=== PATIENT | male | born 1950 | race Caucasian/White ===

== ENCOUNTER → 2016-12-13 | Outpatient (CLI) | payer OTHER ==
[~2016-12-13] MED LIST: ASPI81TA28 PO; CHOL100027 PO; LSN20 PO; NIFE60TA55 PO; OMEG7.5C; PLV75 PO; POTA10TA PO; SIMV-151 PO; SITA50TA5 PO
--- NOTE | 2016-12-13 11:37 | DIAGNOSTIC IMAGING REPORT ---
LEFT ELBOW MIN 3 VIEWS ROUTINE CLINICAL HISTORY: Left elbow pain status post trauma. COMPARISON: None. DISCUSSION: The fat pads are not displaced. No acute fractures are visualized. There is a small olecranon spur. There is mild spurring at the level of both the medial and lateral distal humeral epicondyles. There is a small corticated ossicle adjacent the lateral condyle. There is posterior soft tissue swelling. There is no evidence for soft tissue swelling. IMPRESSION: 1. Posterior soft tissue swelling, possibly representing a hematoma. 2. Degenerative changes. 3. No acute fractures visualized Electronically signed by: Jose De Jesus Puente M.D. 12/13/2016 11:36 AM Dictated Date/Time: 12/13/2016 11:30 AM
--- NOTE | 2016-12-13 12:08 | DIAGNOSTIC IMAGING REPORT ---
RIGHT KNEE 3 VIEWS HISTORY: Right knee pain. FALL ON ICE Right COMPARISON: None. FINDINGS: There is no fracture or dislocation. Prepatellar soft tissue swelling. No significant knee effusion. Moderate cartilage space narrowing within the medial compartment of the knee. Tricompartmental marginal osteophytes. There is mild cartilage space narrowing at the patellofemoral compartment. No radiopaque foreign bodies. IMPRESSION: 1. No fracture or dislocation within the right knee. 2. Prepatellar soft tissue swelling. 3. Mild to moderate osteoarthritis. Electronically signed by: Lele Alvarez M.D. 12/13/2016 12:06 PM Dictated Date/Time: 12/13/2016 12:04 PM
== END | disposition home or self-care (01) ==
LOC: C.RAD1850 11:08
PROVIDERS: ATTEND Family Medicine
DX: M25.522 Pain in left elbow (principal); M25.561 Pain in right knee; W00.9XXA Unspecified fall due to ice and snow, initial encounter; M17.11 Unilateral primary osteoarthritis, right knee

== ENCOUNTER 2023-12-17 04:56 | Observation (INO) ==
--- NOTE | 2023-11-07 15:57 | PAT Medication Instructions ---
Medication Instructions Date of Service November 07, 2023 Home Medications Medication Instructions Recorded indapamide 2.5 mg tablet 2.5 mg PO QAM #90 tabs 01/28/23 atorvastatin 40 mg tablet 40 mg PO HS #90 tabs 05/06/23 clopidogrel 75 mg tablet 75 mg PO QAM #90 tabs 05/06/23 potassium chloride 10 mEq 10 meq PO BID #180 tabs 06/09/23 tablet,extended release aspirin 81 mg tablet,delayed release (Aspir-) 81 mg PO QAM cholecalciferol (vitamin D3) 25 mcg (1,000 unit) capsule (Vitamin D3) 2,000 unit PO QAM metformin 1,000 mg tablet 1,000 mg PO BID multivitamin 1 tab PO DAILY zinc 50 mg tablet 50 mg PO QAM indapamide 2.5 mg tablet 2.5 mg PO QAM atorvastatin 40 mg tablet 40 mg PO HS clopidogrel 75 mg tablet 75 mg PO QAM potassium chloride 10 mEq tablet,extended release 10 meq PO BID amlodipine 10 mg tablet 10 mg PO QAM doxazosin 2 mg tablet 2 mg PO QPM magnesium 500 mg tablet 15 mg PO QAM metoprolol succinate 100 mg tablet,extended release 24 hr 100 mg PO QAM olmesartan 40 mg tablet 40 mg PO QAM turmeric 400 mg capsule 400 mg PO QAM vitamin A-vitamin C-vit E-min tablet 1 tab PO QAM ASK your prescriber and surgeon aspirin 81 mg tablet,delayed release (Aspir-) 81 mg PO QAM clopidogrel 75 mg tablet 75 mg PO QAM STOP taking 2 weeks before surgery (or as soon as possible if surgery is within 2 weeks) turmeric 400 mg capsule 400 mg PO QAM vitamin A-vitamin C-vit E-min tablet 1 tab PO QAM DO NOT take the morning of surgery cholecalciferol (vitamin D3) 25 mcg (1,000 unit) capsule (Vitamin D3) 2,000 unit PO QAM metformin 1,000 mg tablet 1,000 mg PO BID multivitamin 1 tab PO DAILY zinc 50 mg tablet 50 mg PO QAM indapamide 2.5 mg tablet 2.5 mg PO QAM potassium chloride 10 mEq tablet,extended release 10 meq PO BID magnesium 500 mg tablet 15 mg PO QAM olmesartan 40 mg tablet 40 mg PO QAM Take morning of surgery With a small sip of water, OTHERWISE NOTHING TO EAT OR DRINK AFTER MIDNIGHT: amlodipine 10 mg tablet 10 mg PO QAM metoprolol succinate 100 mg tablet,extended release 24 hr 100 mg PO QAM Take evening before surgery metformin 1,000 mg tablet 1,000 mg PO BID atorvastatin 40 mg tablet 40 mg PO HS potassium chloride 10 mEq tablet,extended release 10 meq PO BID doxazosin 2 mg tablet 2 mg PO QPM Other Notes If you have any questions please call us at [phone] or [phone] or [phone] or [phone]
--- NOTE | 2023-11-17 12:56 | Anesthesiology Consultation ---
Date of Service November 17, 2023 Assessment & Plan (1) Encounter for pre-operative examination: - Check BSG AM DOS - Infectious disease screening: Per assessment on 11/17/23: No known infectious disease contacts or current infectious disease symptoms. No noted recent Covid positive test result. - Outpatient joint assessment: Pt currently scheduled for inpatient pathway. If surgeon requests review for outpatient joint pathway, patient is not recommended candidate for outpatient joint program from anesthesia standpoint. - Cardiology visit (07/28/23): "Mr. Zaman is a 73-year-old male with a history of Non-obstructive CAD (09/10/2006 Cardiac Catheterization), Carotid Artery Stenosis, Hypertension, Dyslipidemia, Type 2 Diabetes Mellitus, TIA, and Spinal Stenosis -- who presents today for Cardiologic Follow-up. Patient offers no complaints today and he has been doing well. He is able perform his usual activities daily living, walk, work, do yard work, etc without limiting cardiopulmonary symptoms. He walks for exercise. Patient has not experienced any angina pectoris or anginal equivalent symptoms, overt signs or symptoms of heart failure, nor has he had any symptoms suggestive of dysrhythmia. Patient has not had any symptoms suggestive of stroke or mini stroke. He does not experience claudication with his day-to-day activities.. Patient monitors his blood pressure at home and brought in those readings today - the vast majority of his systolic blood pressures are in the 120s and 130s. When I rechecked his blood pressure today manually, it was 132/74 left arm seated.. Carotid Duplex 09/17/2021 [facility]: Right ICA 100%. Left ICA approximately 70%. Antegrade flow bilateral vertebral arteries." No medication changes. - Plavix instructions: patient made aware that for neuraxial anesthesia, Plavix needs to be held 7 days prior to surgery. Patient voiced understanding/will check if okay with prescriber. - Carotid disease: Patient with hx of 100% ARMANI occlusion and approximately 70% LICA stenosis per 09/2021 carotid duplex 09/2021. Patient states this was previously under surveillance by Dr. Mancia but indicates that this has not been evaluated since Dr. Mancia has retired. But per chart review, [facility] cardio had done patient's most recent 2020 carotid imaging and indicated no plan for surgical intervention/to continue monitoring. Spoke with Melvin GUERIN 11/17/23, he was willing to update carotid imaging prior to surgery which was done 11/20/23. Carotid duplex performed 11/20/23 notes: 100% occlusion ARMANI. Approximately 70% stenosis LICA (% stenosis may be falsely elevated secondary to contralateral occlusion). "Results are unchanged" compared to 09/2021 duplex. > Stable findings and patient asymptomatic. Chart Review Chart Review: Acceptable Risk for Surgery (pending evaluation DOS) and Patient seen in Pre Admission Testing Teaching & Discussion Pre-Anesthesia Teaching/Discussion Notes: Instructed NPO after midnight before surgery,except medications with 15 cc of water. Medication instructions provided according to the PAT guidelines. History Surgery Operation Date: 12/17/23 07:00 Proposed Procedures p Right Total Knee Arthroplasty - Luis Alberto Fu DO Height/Weight Height: 5 ft 9 in Weight: 83 kg Allergies Allergy/AdvReac Type Severity Reaction Status Date / Time No Known Allergies Allergy Verified 11/07/23 15:02 Medications Home Medications Medication Instructions Recorded Confirmed Last Taken aspirin 81 mg tablet,delayed 81 mg PO QAM 01/02/19 11/07/23 02/06/21 release (Aspir-) cholecalciferol (vitamin D3) 25 2,000 unit PO QAM 01/02/19 11/07/23 02/06/21 mcg (1,000 unit) capsule (Vitamin D3) metformin 1,000 mg tablet 1,000 mg PO BID 01/12/21 11/07/23 02/06/21 multivitamin 1 tab PO DAILY 02/14/22 11/07/23 Unknown zinc 50 mg tablet 50 mg PO QAM 02/14/22 11/07/23 Unknown indapamide 2.5 mg tablet 2.5 mg PO QAM #90 tabs 01/28/23 11/07/23 Unknown atorvastatin 40 mg tablet 40 mg PO HS #90 tabs 05/06/23 11/07/23 Unknown clopidogrel 75 mg tablet 75 mg PO QAM #90 tabs 05/06/23 11/07/23 Unknown potassium chloride 10 mEq 10 meq PO BID #180 tabs 06/09/23 11/07/23 Unknown tablet,extended release amlodipine 10 mg tablet 10 mg PO QAM 11/07/23 11/07/23 Unknown doxazosin 2 mg tablet 2 mg PO QPM 11/07/23 11/07/23 Unknown magnesium 500 mg tablet 15 mg PO QAM 11/07/23 11/07/23 Unknown metoprolol succinate 100 mg 100 mg PO QAM 11/07/23 11/07/23 Unknown tablet,extended release 24 hr olmesartan 40 mg tablet 40 mg PO QAM 11/07/23 11/07/23 Unknown turmeric 400 mg capsule 400 mg PO QAM 11/07/23 11/07/23 Unknown vitamin A-vitamin C-vit E-min 1 tab PO QAM 11/07/23 11/07/23 Unknown tablet Past Medical History Medical History CAD (coronary artery disease) Non-obstructive per 2005 cardiac cath (per cardio records) Follows with [facility] Carotid artery stenosis Carotid duplex 11/20/23: 100% occlusion ARMANI. Approximately 70% stenosis LICA (% stenosis may be falsely elevated secondary to contralateral occlusion). "Results are unchanged" compared to 09/2021 duplex. HTN (hypertension) Hx of vertigo Hyperlipidemia Macular degeneration of left eye Spinal stenosis Transient ischemic attack (TIA) 10+ years ago Type 2 diabetes mellitus Exercise / Class Metabolic Activity II 4-5 Yardwork/Stairs/Walk up hill Past Family History Family History Other FHx: heart disease Family history of diabetes mellitus Family history of high blood pressure No family history of adverse response to anesthesia Past Surgical History Surgical History History of cardiac cath 2005- no stents History of cataract surgery B/L History of tonsillectomy and adenoidectomy History of tooth extraction Hx of vasectomy Past Anesthesia History No Hx of Anesthesia Complications and No Family Hx of Anesthesia Complications History of PONV No Hx of PONV and No Hx of Motion Sickness Social History Smoking Status: Current every day smoker tobacco type: cigarettes and smokeless tobacco Smoking cigarettes per day: 5 cigs/day (hx tobacco use x 20 years) Do You Dip or Chew Tobacco: Yes (1 can/week > advised none DOS) Hx Alcohol Use: Yes Alcohol type: beer alcohol intake frequency: a few times a week Hx Substance Use: No substance use type: does not use Review of Systems Patient denies chest pain, shortness of breath, dyspnea on exertion, fever, chills, cough, wheezing, palpitations. Physical Exam Vital Signs VITALS BP 184/84 (per patient, BP monitored closely at home, systolic 140s earlier today) P 64 TEMP 98.4 SP02 96%RA RESP 18 PHYSICAL Full cervical extension range of motion. Full TMJ range of motion. TMD 3 finger breaths Mallampati Score 3 Dentition: upper/lower full dentures Lungs: clear throughout to auscultation Cardiac: regular rate and rhythm, no murmurs noted Spine: normal Carotid arteries: negative bruit Extremities: no LE edema Lab Results Anesthesia Preop Results Results Anesthesia Widget: WBC 8.60 K/ul (4.8-10.8) 11/17/23 Hgb 15.2 g/dl (14.0-18.0) 11/17/23 Hct 43.3 % (42.0-52.0) 11/17/23 Plt 251 K/uL (130-400) 11/17/23 Na 137 mmol/L (136-145) 11/17/23 K 3.9 mmol/L (3.5-5.1) 11/17/23 Cl 101 mmol/L (98-107) 11/17/23 CO2 30 mmol/L (21-32) 11/17/23 BUN 14 mg/dl (6-23) 11/17/23 Creat 0.82 mg/dl (0.6-1.4) 11/17/23 Glucose Level 112 mg/dl (70-99(Fasting)) H 11/17/23 PT 11.2 Seconds (9.0-12.0) 11/17/23 PTT 29 Seconds (21-31) 11/17/23 INR 1.0 (0.9-1.1) 11/17/23 HA1c 6.1 % (4.5-5.6) H 11/17/23 Urine Color Yellow 11/17/23 Urine Appearance Clear (Clear) 11/17/23 Urine pH 7.0 (4.5-7.5) 11/17/23 Urine Specific [place] 1.007 (1.000-1.030) 11/17/23 Urine Protein Negative (Negative) 11/17/23 Urine Glucose (UA) Negative (Negative) 11/17/23 Urine Ketones Negative (Negative) 11/17/23 Urine Blood Trace (Negative) H 11/17/23 Urine Nitrite Negative (Negative) 11/17/23 Urine Bilirubin Negative (Negative) 11/17/23 Urine Urobilinogen Negative (Negative) 11/17/23 Urine Leukocyte Esterase Negative (Negative) 11/17/23 Urine WBC (Auto) 0 /hpf (0-5) 11/17/23 Urine RBC (Auto) 5-10 /hpf (0-4) H 11/17/23 Urine Hyaline Casts (Auto) 0 /lpf (0-5) 11/17/23 Urine Epithelial Cells (Auto) 0-5 /lpf (0-5) 11/17/23 Urine Bacteria (Auto) Negative (Negative) 11/17/23 Blood Type O Positive 11/17/23 Antibody Screen NEGATIVE 11/17/23 Testing Electrocardiogram Date: 11/17/23 Findings: + NSR @ (61) Chest X-Ray Date: 11/17/23 Findings: + NAD Echocardiogram Date: 07/05/19 EF 50-55%. LVH with mild asymmetric septal thickening. Mild MR/TR. Pulmonary artery pressures in the range of 30 mmHg. > Reviewed throughout [facility] cardiology office visits; review by pharmacy helper at [facility] appt 07/27/2021: "Normal LV wall motion and systolic function. EF 50-55%. LVH. Mild MR." Stress Test Date: 09/08/19 Type: nuclear Normal myocardial perfusion SPECT images without evidence of pharmacologically induced ischemia. Normal LV wall motion and thickening. LVEF 50%. Other Testing Carotid duplex Date: 09/17/21 100% occlusion ARMANI. Approximately 70% stenosis LICA. Antegrade flow bilateral vertebral arteries. Carotid duplex Date: 11/20/23 100% occlusion ARMANI. Approximately 70% stenosis LICA (% stenosis may be falsely elevated secondary to contralateral occlusion). Antegrade flow bilateral vertebral arteries. "Results are unchanged" compared to 09/2021 duplex.
--- NOTE | 2023-11-18 09:37 | History & Physical Report ---
Date of Service November 18, 2023 date of surgery: 12/17/23 Procedure: Right Total Knee Arthroplasty Surgeon: Luis Alberto Fu, DO Assessment & Plan (1) Arthritis of right knee: Plan: Patient presents for evaluation of continued right knee pain, he is status post viscosupplementation injection in May with mild relief. He had also previously undergone corticosteroid injection with minimal relief. prior x-rays were reviewed which show advanced degenerative changes to his right knee, we discussed options including continued injections versus knee replacement. At this point he would like to proceed with scheduling for his right total knee arthroplasty. Would recommend overnight stay at the hospital with discharge home with home health physical therapy, plan to be [facility] patient-matched right total knee arthroplasty. The risks and benefits have been discussed including, but not limited to, risk of infection, nerve injury, stiffness, loss of motion, failure to improve, etc. Reasonable outcomes and options of treatment were discussed. An explanation of appropriate alternatives to the procedure that may be advantageous were discussed and their risks and benefits, as well as the risks and benefits of not proceeding with treatment. I offered to answer any additional inquiries concerning the treatment involved. All the patient's questions were answered. The patient is agreeable, understanding of the treatment plan and alternatives, and wishes to proceed with the treatment plan. History of Present Illness Chief Complaint: Right knee pain Primary Care Provider: Tre Breaux Mr. Zaman is a pleasant 73-year-old male who presented for preop evaluation prior to upcoming right total knee arthroplasty. He has a longstanding history of right knee pain which is gradually worsened and is now affecting his daily activities including walking standing using stairs. Pain also wakes him at night. He undergone previous injections including steroid as well as viscosupplementation without any significant improvement. He has tried oral anti-inflammatories and Tylenol as well. At this point time is failed conservative measures and wishes to proceed with a right total knee replacement Allergies Allergy/AdvReac Type Severity Reaction Status Date / Time No Known Allergies Allergy Verified 11/07/23 15:02 Home Medications Medication Instructions Recorded Confirmed Type aspirin 81 mg tablet,delayed 81 mg PO QAM 01/02/19 11/07/23 History release (Aspir-) cholecalciferol (vitamin D3) 25 2,000 unit PO QAM 01/02/19 11/07/23 History mcg (1,000 unit) capsule (Vitamin D3) metformin 1,000 mg tablet 1,000 mg PO BID 01/12/21 11/07/23 History multivitamin 1 tab PO DAILY 02/14/22 11/07/23 History zinc 50 mg tablet 50 mg PO QAM 02/14/22 11/07/23 History indapamide 2.5 mg tablet 2.5 mg PO QAM #90 tabs 01/28/23 11/07/23 Rx atorvastatin 40 mg tablet 40 mg PO HS #90 tabs 05/06/23 11/07/23 Rx clopidogrel 75 mg tablet 75 mg PO QAM #90 tabs 05/06/23 11/07/23 Rx potassium chloride 10 mEq 10 meq PO BID #180 tabs 06/09/23 11/07/23 Rx tablet,extended release amlodipine 10 mg tablet 10 mg PO QAM 11/07/23 11/07/23 History doxazosin 2 mg tablet 2 mg PO QPM 11/07/23 11/07/23 History magnesium 500 mg tablet 15 mg PO QAM 11/07/23 11/07/23 History metoprolol succinate 100 mg 100 mg PO QAM 11/07/23 11/07/23 History tablet,extended release 24 hr olmesartan 40 mg tablet 40 mg PO QAM 11/07/23 11/07/23 History turmeric 400 mg capsule 400 mg PO QAM 11/07/23 11/07/23 History vitamin A-vitamin C-vit E-min 1 tab PO QAM 11/07/23 11/07/23 History tablet Past Med/Surg History Medical History Carotid artery stenosis Carotid duplex 09/2021: 100% ARMANI occlusion, ~70% LICA stenosis CAD (coronary artery disease) Non-obstructive per 2006 cardiac cath (per cardio records) Follows with [facility] Type 2 diabetes mellitus Hx of vertigo Macular degeneration of left eye Transient ischemic attack (TIA) 10+ years ago Hyperlipidemia HTN (hypertension) Spinal stenosis Surgical History History of cataract surgery B/L Hx of vasectomy History of tooth extraction History of tonsillectomy and adenoidectomy History of cardiac cath 2005- no stents Family History Other FHx: heart disease Family history of diabetes mellitus Family history of high blood pressure No family history of adverse response to anesthesia Social History Smoking Status: Current every day smoker Cigarettes Per Day: 5 cigs/day (hx tobacco use x 20 years); Second Hand Exposure: Yes ( SMOKES); Do You Dip or Chew Tobacco: Yes (1 can/week > advised none DOS); Hx Alcohol Use: Yes Alcohol type: beer Hx Substance Use: No Preferred Language: Azeri Communication Ability: Effective Alarm Adjuster Required: No Beliefs That Will Affect Care: None Current Living Situation: Spouse Feels Safe at Home: Yes Assistive Devices: Denture - Upper, Denture - Lower and Glasses Review of Systems Review of Systems: All systems reviewed & are unremarkable except as noted in HPI & below Constitutional: no fever, no chills and no sweats Respiratory: no cough and no dyspnea Cardiovascular: no chest pain, no dyspnea and no orthopnea Gastrointestinal: no abdominal pain, no nausea and no vomiting Musculoskeletal: as per Subjective / HPI Physical Exam Physical Exam: HT: 5ft 9in WT: 83kg Constitutional: WD/WN, vitals as above no acute distress Respiratory: normal respiratory effort, lungs clear to auscultation no respiratory distress, no labored breathing and does not use accessory muscles Cardiovascular: RRR, no murmur, no edema Gastrointestinal (Abdomen): normal bowel sounds, soft, nontender, no hepatosplenomegaly Musculoskeletal: Knee: + knee abnormal to inspection (RIGHT KNEE), + effusion (+1 effusion), + surgical incision (well healed portals), + limited ROM of knee (ROM 0/3/110), + knee ROM with crepitation, + joint line tenderness (medial joint line) and + George's sign positive; no deformity, no skin erythema, no ecchymosis, no valgus laxity, no varus laxity, anterior drawer test negative, Gregory's sign negative and pivot shift test negative Results & Data Results & Data Diagnostic Findings Right Knee X-ray: Right knee series showing advanced degenerative changes to the right knee, narrowing of the medial compartment and patello-femoral joint with patellar spurring noted, findings showing joint space narrowing of the medial compartment and patello-femoral joint, osteophyte formation and subchondral sclerosis noted. overall varus alignment. no acute bony pathology noted.
[2023-12-17] MEDS: ACETAMINOPHEN 500 MG TAB PO SCH ×2 (05:56→13:26)
[2023-12-17] MEDS: CeleBREX 200 MG CAP PO SCH (05:56)
[2023-12-17] MEDS: GABAPENTIN 300 MG CAP PO SCH (05:56)
[2023-12-17] MEDS: LR 500ML BOLUS, THEN 15ML/HR IV SCH (05:56)
[2023-12-17] MEDS: FAMOTIDINE 20 MG TAB PO SCH (05:56)
[2023-12-17] MEDS: METOCLOPRAMIDE HCL 10 MG TABLET PO SCH (05:56)
[2023-12-17] MEDS: LR 60ML/HR IV SCH (05:56)
[2023-12-17] MEDS ORDERED: BUPIVACAINE 0.5 % 5 MG/1 ML PF 10ML VIAL ONE (06:23)
[2023-12-17] MEDS ORDERED: BUPIVACAINE 0.25% PF 30 ML VIAL ONE (06:24)
[2023-12-17] MEDS ORDERED: MIDAZOLAM HCL 1 MG/ML 2ML VIAL ONE (06:38)
[2023-12-17] MEDS ORDERED: fentaNYL citrate PF 100 MCG/2 ML VIAL ONE (06:39)
[2023-12-17] MEDS: TRANEXAMIC ACID 1,000 MG **IV Pre-op IV SCH (06:50)
--- NOTE | 2023-12-17 06:58 | History & Physical Bridge Note ---
Date of Service December 17, 2023 History & Physical Bridge Note I have examined the patient, reviewed the History & Physical and in the interval since the performance of the History & Physical I have noted the following changes of clinical significance: no changes noted
[2023-12-17] MEDS: ceFAZolin 2000MG 2,000 MG/15 ML SYR IV SCH ×2 (07:01→13:26)
[2023-12-17] MEDS ORDERED: fentaNYL citrate PF 100 MCG/2 ML VIAL IV PRN (07:06)
[2023-12-17] MEDS ORDERED: ePHEDrine sulfate 50 MG/ML AMP IV PRN (07:06)
[2023-12-17] MEDS ORDERED: ONDANSETRON INJ 2 MG/ML 2 ML VIAL IV PRN ×2 (07:06→09:02)
[2023-12-17] MEDS ORDERED: ATROPINE SULFATE 0.1 MG/ML 10ML SYR IV PRN (07:06)
[2023-12-17] MEDS: ORTHO JOINT ANESTHETIC ONE (07:42)
[2023-12-17] MEDS: TRANEXAMIC ACID 1,000 MG **IV Intra-op IV SCH (08:25)
--- NOTE | 2023-12-17 08:25 | Operative Report ---
Post Operative Report Pre & Post Diagnosis Operation Date: 12/17/23 07:00 Pre-Op Diagnosis: Right Knee Osteoarthritis Post-Op Diagnosis: Right Knee Osteoarthritis I identified the patient and participated in the time-out.: Yes Procedure Operation Date: 12/17/23 07:00 Actual Procedures p Right Total Knee Arthroplasty(Right) Utilizing [employer] persona size femur 9 standard tibia F poly 10 medial constrained patella 31 keya- Luis Alberto Fu DO Surgeon Luis Alberto Fu DO Hi Ranger Operator Cirilo ZARCO Estimated Blood Loss 5 Findings Consistent with Post-Op Diagnosis Patient presents with severe end-stage tricompartmental DJD varus alignment 7 degree flexion contracture eburnated [id number] marginal osteophytes moderate to large effusion nonresponse to conservative management Specimens Bone and cartilage Drains Medium bore Hemovac Anesthesia Type [facility] Complications none Disposition Accompanied Patient To Recovery: No Disposition: Recovery Room Indications Patient presents with severe end-stage tricompartmental DJD right knee nonresponse to conservative management including physical therapy anti-inflamm atories relative rest activity modification corticosteroid injection viscosupplementation Description of Procedure After proper prepping and draping of the Right lower extremity anterior midline incision was made over the region of the extensor extensor mechanism after meticulous hemostasis was obtained and maintained in subcutaneous tissues a medial parapatellar incision was made The patella was subluxed lateralward the medial lateral gutter were cleaned from any hypertrophic synovitis and scar tissue of the distal femoral block was placed and the distal femoral osteotomy cut was made subsequently the chamfers anterior and posterior osteotomy cuts were made utilizing the 4-in-1 block the tibia was subsequently subluxed anteriorward medial and ateral meniscal remnants were excised in their entirety remnants of the anterior and posterior cruciate ligaments were excised in their entirety excellent exposure of the proximal tibia was obtained the tibial osteotomy guide was placed on the proximal tibial osteotomy cut was made once again the knee was irrigated with copious amounts of sterile saline solution the patella was subsequently everted lateralward thickened scar tissue around the patella was removed the patella was subsequently cut utilizing a freehand technique and was drilled prepared for final preparation and placement of p atella socially flexion-extension gaps were checked and the equal and symmetric trials were placed to the appropriate femoral and tibial trials with poly-spacer being placed for equal flexion and extension gaps and full range of motion including extension to 0 and flexion to 140 the trial components after having been taken to recovery range of motion was subsequently removed meticulous hemostasis was obtained and maintained subsequently a knee block injection of joint cocktail including ropivacaine 0.5% 150 mg. Bupivacaine 0.5% epinephrine 1-200,030 mL's toradol 30 mg dexamethasone 4 mg ketamine 10 mg clonidine 100 micrograms normal saline solution 30 mg was infiltrated into the soft tissues of the posterior knee medial lateral gutters and periosteal synovium special attention was paid to protect neurovascular structures at all times subsequently trial components having been removed the knee was irrigated with sterile saline solution. debris was removed the proximal tibia was subsequently prepared and was made ready for the placement of the tibial component tibial component was also cemented and tamped into position the femoral component was subsequently placed and cemented in the position the patellar component was subsequently cemented in position because hemostasis once again obtained and maintained wound having been thoroughly irrigated with debridement and debridement lavage was performed as well as a medial parapatellar incision closed with #1 Vicryl in interrupted fashion subcutaneous was closed with #2 Vicryl skin was closed with skin clips. PA-C was necessary for prepping and drapping as well as wound closure of deep fascia Sub cutaneous tissue and skin and was necessary for the case. A sterile compressive dressing was placed patient was taken to recovery in stable condition of report dictated by Tank I attest to the content of the Intraoperative Record and any orders documented therein. Any exceptions are noted below.Due to the complex nature of the procedure, the entire surgery was performed with the operational assistance of Cirilo ZARCO. The electrical assistant, under direct supervision, was involved in the actual performance of all aspects of the surgical procedure including hemostasis, tissue retraction and incision, instrument management, patient positioning, and wound closure. I attest to the content of the Intraoperative Record and any orders documented therein. Any exceptions are noted below.
[2023-12-17] MEDS ORDERED: PROPOFOL IV EMULSION 10 MG/ML 100 ML VIAL IV ONE (08:33)
[2023-12-17] MEDS ORDERED: LIDOCAINE 2% 2 ML VIAL/AMP(20MG/ML) INFIL ONE (08:33)
[2023-12-17] MEDS ORDERED: ONDANSETRON INJ 2 MG/ML 2 ML VIAL ONE (08:33)
[2023-12-17] MEDS: ROPIV 0.5% 246mg, Ketorolac 30mg, EPINEPHrine 0.5mg in NSS INFIL SCH (08:36)
[2023-12-17] MEDS ORDERED: NALOXONE HCL 0.4 MG/1 ML VIAL/CARP IV PRN (09:02)
[2023-12-17] MEDS ORDERED: diphenhydrAMINE 50 MG/ML VIAL IV PRN (09:02)
[2023-12-17] MEDS ORDERED: bisacodyL 10 MG SUPP PR PRN (09:02)
[2023-12-17] MEDS ORDERED: MAGNESIUM HYDROXIDE SUSP 30 ML UDC PO PRN (09:02)
--- NOTE | 2023-12-17 10:00 | XRay Report ---
XR knee RT 1 or 2V routine CLINICAL HISTORY: Surgical Post Op COMPARISON: Right knee radiographs December 13, 2016. FINDINGS: Alignment of the total right knee arthroplasty is anatomic. No periprosthetic fracture or unexpected radiopaque foreign body. Surgical drain is in place. IMPRESSION: Expected findings following total right knee arthroplasty. ACT 112: Negative or not required by law. Electronically signed by: Ritesh Akins M.D. 12/17/2023 9:59 AM
[2023-12-17] MEDS: SODIUM CHLORIDE 0.9% 1,000 ML IV SCH (10:02)
[2023-12-17] MEDS ORDERED: PHARMACY GLYCEMIC MGMT CONSULT PRN (11:25)
[2023-12-17] MEDS ORDERED: DEXTROSE 50% 50 ML SYRINGE IV PRN ×2 (11:26→14:15)
[2023-12-17] MEDS ORDERED: GLUCOSE 40% GEL 15 GM TUBE PO PRN ×2 (11:26→14:15)
[2023-12-17] MEDS ORDERED: CARBOHYDRATES FOR HYPOGLYCEMIA PO PRN ×2 (11:26→14:15)
[2023-12-17] MEDS ORDERED: GLUCOSE 10 TAB/TUBE PO PRN ×2 (11:26→14:15)
[2023-12-17] MEDS ORDERED: GLUCAGON FOR INJ 1 MG VIAL SQ PRN (11:26)
--- NOTE | 2023-12-17 11:26 | Hospitalist Consultation ---
Date of Consultation December 17, 2023 Assessment & Plan (1) Status post right knee replacement: -Pain control, DVT PPX, perioperative abx, and IV fluids per the primary team -Currently without pain and non-toxic appearing -Patient is currently post-op day # 0 -Agree with resuming his home Plavix CARLY when he is deemed safe from a bleeding perspective -Agree with am CBC and BMP, we will follow -Wean to RA as able, prn O2 order was adjusted to keep SpO2 between 89-92% with his smoking hx -Please reach out with any questions or concerns -Medicine will continue to follow (2) Carotid artery stenosis: -Continue Plavix when deemed stable from a bleeding perspective (3) Tobacco abuse: -Currently smoking ~10 cigarettes daily -Denies need for nicotine patch/gum at this time -Incentive spirometry and albuterol ordered at the time of the consult -Continue to stress the importance of cessation (4) CAD (coronary artery disease): -Continue Metoprolol as long as BP and HR are stable (5) Type 2 diabetes mellitus: -Hold metformin -Not on insulin at home -Will start CF of 50 ACHS for now -DMII/HH diet -Pharmacy glycemic consult placed at the time of the consult (6) HTN (hypertension): -Stable -Agree with continuing amlodipine and losartan tomorrow if hemodynamically stable Plan The patient was discussed with Dr. Fernandez at the time of the consult Supervising Physician Co-Signing Physician Notes I personally saw and examined the patient. I verified all paulino points and agree with Polo Bangura PA-C with the following exceptions and/or additions: 73-year-old postop day#0 right total knee arthroplasty performed by Dr Fu. EBL 5ml. No acute concerns or questions by the patient. O/E HS RRR, no murmurs, Chest CTAB, Abdo SNT A/P VTE/pain/bowel management per primary orthopedic team. No changes to plan above. Blood pressure appears stable to resume all his usual medications. History of Present Illness Reason for Consultation: Post-op medical management Requesting Physician: Luis Alberto Fu DO Attending Physician: Dr. Jorge Fernandez History of Present Illness Rosendo Zaman (Paul) is a 73-year-old male with a history of Non-obstructive CAD (09/10/2006 Cardiac Catheterization), Carotid Artery Stenosis, Hypertension, Dyslipidemia, Type 2 Diabetes Mellitus, tobacco abuse TIA, and Spinal Stenosis who presented to the [facility] OR on 12/17/23 for elective Right Total Knee Arthroplasty with Dr. Luis Alberto Fu. Per the operative report, anesthesia was listed as "[facility]", EBL was listed as 5 cc, and there were no reported intraoperative complications. At the time of the exam the patient was sitting in bed in no acute distress. He is currently saturating at 97% on 2L NC. He feels well after his procedure, no pain in the RLE at this time as it is still mostly numb. When asked, he states he still smokes approximately 10 cigarettes daily. He is not on home O2 or HS Cpap/Bipap. He took his am doses of Amlodipine and Metoprolol prior to Hospital arrival today. Please refer to Dr. Fernandez's attestation for any changes to the treatment plan Allergies Allergy/AdvReac Type Severity Reaction Status Date / Time No Known Allergies Allergy Verified 12/17/23 05:34 Home Medications Medication Instructions Recorded Confirmed Type cholecalciferol (vitamin D3) 25 2,000 unit PO QAM 01/02/19 12/17/23 History mcg (1,000 unit) capsule (Vitamin D3) metformin 1,000 mg tablet 1,000 mg PO BID 01/12/21 12/17/23 History multivitamin 1 tab PO DAILY 02/14/22 12/17/23 History zinc 50 mg tablet 50 mg PO QAM 02/14/22 12/17/23 History indapamide 2.5 mg tablet 2.5 mg PO QAM #90 tabs 01/28/23 12/17/23 Rx atorvastatin 40 mg tablet 40 mg PO HS #90 tabs 05/06/23 12/17/23 Rx clopidogrel 75 mg tablet 75 mg PO QAM #90 tabs 05/06/23 12/17/23 Rx potassium chloride 10 mEq 10 meq PO BID #180 tabs 06/09/23 12/17/23 Rx tablet,extended release amlodipine 10 mg tablet 10 mg PO QAM 11/07/23 12/17/23 History doxazosin 2 mg tablet 2 mg PO QPM 11/07/23 12/17/23 History magnesium 500 mg tablet 15 mg PO QAM 11/07/23 12/17/23 History metoprolol succinate 100 mg 100 mg PO QAM 11/07/23 12/17/23 History tablet,extended release 24 hr olmesartan 40 mg tablet 40 mg PO QAM 11/07/23 12/17/23 History turmeric 400 mg capsule 400 mg PO QAM 11/07/23 12/17/23 History vitamin A-vitamin C-vit E-min 1 tab PO QAM 11/07/23 12/17/23 History tablet acetaminophen 500 mg tablet 1,000 mg (2 x 500 mg) PO Q8 pain 12/17/23 Rx 21 days #126 tabs aspirin 81 mg tablet,delayed 81 mg PO BID 30 days #60 tabs 12/17/23 Rx release cefadroxil 500 mg capsule 500 mg PO BID 14 days #28 caps 12/17/23 Rx oxycodone 5 mg tablet 5 - 10 mg (1 - 2 x 5 mg) PO Q6H 12/17/23 Rx PRN pain #30 tabs Patient History Medical History CAD (coronary artery disease) Non-obstructive per 2005 cardiac cath (per cardio records) Follows with OR Cardiology Carotid artery stenosis Carotid duplex 11/20/23: 100% occlusion ARMANI. Approximately 70% stenosis LICA (% stenosis may be falsely elevated secondary to contralateral occlusion). "Results are unchanged" compared to 09/2021 duplex. HTN (hypertension) Hx of vertigo Hyperlipidemia Macular degeneration of left eye Spinal stenosis Transient ischemic attack (TIA) 10+ years ago Type 2 diabetes mellitus Surgical History History of cardiac cath 2005- no stents History of cataract surgery B/L History of tonsillectomy and adenoidectomy History of tooth extraction Hx of vasectomy Family History Other FHx: heart disease Family history of diabetes mellitus Family history of high blood pressure No family history of adverse response to anesthesia Social History Smoking Status: Current every day smoker Cigarettes Per Day: 5 cigs/day (hx tobacco use x 20 years); Second Hand Exposure: Yes ( SMOKES); Do You Dip or Chew Tobacco: Yes (1 can/week > advised none DOS); Hx Alcohol Use: Yes Alcohol type: beer Hx Substance Use: No Preferred Language: Palauan Communication Ability: Effective Air And Water Filler Required: No Beliefs That Will Affect Care: None Current Living Situation: Spouse Feels Safe at Home: Yes Assistive Devices: Walker Physical Exam Physical Exam: Physical Exam: General: In no acute distress, stated age, well-nourished, good hygiene HEENT: Normocephalic, atraumatic, no scleral icterus, pupils around round, symmetrical, and reactive to light, moist mucus membranes, trachea midline, no thyromegaly Chest/Pulm: No respiratory distress, symmetrical chest expansion, scattered expiratory wheezing Cardiac: bradycardic rate, regular rhythm, no murmurs noted Abdomen: Negative for ascites and bruising, normoactive bowel sounds, soft, non-tender to palpation throughout Musculoskeletal: RLE currently wrapped and with brace in place without signs of drainage, patient with intact sensation and motor function in the BL feet Extremities: Radial, dorsalis pedis, and posterior tibial pulses are intact and symmetrical, no edema noted in the BL LE's Skin: Warm, dry, no rashes , lesions, or scars noted Neuro: Alert and oriented to person, place, month, year, and president, no focal defects,no tremors noted Psych: No acute distress, calm and cooperative during the exam Results & Data Results & Data Vital Signs (Past 12 Hours) Vital Signs Temp Pulse Pulse Pulse Resp BP Pulse Ox 12/17/23 11:02 12/17/23 10:45 36.4 C L 46 L 16 139/73 96 12/17/23 10:15 36.5 C 50 L 16 153/78 H 97 12/17/23 10:00 12/17/23 09:45 36.4 C L 50 L 16 145/78 H 95 12/17/23 09:30 36.2 C L 55 L 18 121/68 95 12/17/23 09:20 54 L 18 126/64 95 12/17/23 09:10 54 L 17 116/74 96 12/17/23 09:01 36.0 C L 57 L 17 123/63 96 12/17/23 05:38 36.6 C 59 L 18 148/69 H 96 O2 Del Method O2 Flow Rate 12/17/23 11:02 Nasal Cannula 2 12/17/23 10:45 Nasal Cannula 2 12/17/23 10:15 Nasal Cannula 2 12/17/23 10:00 Nasal Cannula 2 12/17/23 09:45 Nasal Cannula 2 12/17/23 09:30 Nasal Cannula 2 12/17/23 09:20 Oxymask 5 12/17/23 09:10 Oxymask 5 12/17/23 09:01 Oxymask 5 12/17/23 05:38 Room Air Laboratory Results Abnormal lab results 12/17/23 12/17/23 12/17/23 Range/Units 05:36 09:11 11:33 POC Glucose 120 H 126 H 127 H (70-99) mg/dl Diagnostic Findings Knee X-Ray 12/17/23 09:02 XR knee RT 1 or 2V routine CLINICAL HISTORY: Surgical Post Op COMPARISON: Right knee radiographs December 13, 2016. FINDINGS: Alignment of the total right knee arthroplasty is anatomic. No periprosthetic fracture or unexpected radiopaque foreign body. Surgical drain is in place. IMPRESSION: Expected findings following total right knee arthroplasty. ACT 112: Negative or not required by law. Electronically signed by: Ritesh Akins M.D. 12/17/2023 9:59 AM PG Care Time/CCT Total # of Minutes Spent Total Time Spent with Patient: Total time spent is greater than 50% in coordination of care (as documented) at patient's floor/unit and/or counseling patient: Coding [place] [address] IN/OBS CONSULT LVL 3,45M Patient Type Established Medical Decision Making High Complexity Diagnoses Status post right knee replacement Z96.651 Carotid artery stenosis I65.29 Tobacco abuse Z72.0 CAD (coronary artery disease) I25.10 Type 2 diabetes mellitus E11.9 HTN (hypertension) I10
--- NOTE | 2023-12-17 11:39 | Anesthesiology Progress Note ---
Date of Service December 17, 2023 Anesthesia Post Procedure Vital Signs Vital Signs: Temp Pulse Pulse Pulse Resp BP Pulse Ox 12/17/23 11:02 12/17/23 10:45 36.4 C L 46 L 16 139/73 96 12/17/23 10:15 36.5 C 50 L 16 153/78 H 97 12/17/23 10:00 12/17/23 09:45 36.4 C L 50 L 16 145/78 H 95 12/17/23 09:30 36.2 C L 55 L 18 121/68 95 12/17/23 09:20 54 L 18 126/64 95 12/17/23 09:10 54 L 17 116/74 96 12/17/23 09:01 36.0 C L 57 L 17 123/63 96 12/17/23 05:38 36.6 C 59 L 18 148/69 H 96 O2 Del Method O2 Flow Rate 12/17/23 11:02 Nasal Cannula 2 12/17/23 10:45 Nasal Cannula 2 12/17/23 10:15 Nasal Cannula 2 12/17/23 10:00 Nasal Cannula 2 12/17/23 09:45 Nasal Cannula 2 12/17/23 09:30 Nasal Cannula 2 12/17/23 09:20 Oxymask 5 12/17/23 09:10 Oxymask 5 12/17/23 09:01 Oxymask 5 12/17/23 05:38 Room Air Pain Intensity Right Knee: Pain Intensity: 0 Transfer of Care Handoff Completed per policy Notes Mental Status: alert / awake / arousable and participated in evaluation Patient Amnestic to Procedure: Yes Nausea / Vomiting: adequately controlled Pain: adequately controlled Airway Patency, RR, SpO2: stable & adequate BP & HR: stable & adequate Hydration State: stable & adequate Neuraxial Anesthesia: was administered and sensory block is resolving Anesthetic Complications: no major complications apparent and Pt Satisfied with anesthetic care
[2023-12-17] MEDS: INSULIN ASPART PER UNIT CHARGE SC SCH (11:51)
[2023-12-17] MEDS: ALBUTEROL 0.5% NEB SOLN 2.5 MG/0.5 ML VIAL NEB SCH (12:27)
--- NOTE | 2023-12-17 14:14 | Pharmacy Report ---
Pharmacy Glycemic Short Note 2 - Date of Service December 17, 2023 - Glycemic Short BSG Results (Last 24 hours): 12/17/23 12/17/23 12/17/23 05:36 09:11 11:33 POC Glucose 120 H 126 H 127 H OUTPATIENT ANTIDIABETIC REGIMEN: * a1C 11/17/20 * Metformin 1000mg BID ASSESSMENT: * Patient admitted post TKA. No steroids administered in OR * BSGs have been steady ~120 mg/dL most of day. Will trial no carb ratio/hold basal for now. * Monitor BSGs- add carb ratio if trend upward PLAN FOR INPATIENT GLYCEMIC CONTROL: * Hold outpatient oral diabetes medications * Basal insulin * HOld * Bolus insulin * NovoLog per scale ACHS or Q6hrs while NPO * Goal Range: Low 110 mg/dL - High 140 mg/dL * Correction Factor: 40 mg/dL/unit * Nutritional / Prandial insulin per carb ratio of 1 unit per - grams CHO consumed
[2023-12-17] MEDS ORDERED: GLUCAGON FOR INJ 1 MG VIAL IM PRN (14:15)
[2023-12-17 16:33] VITALS: TEMP 97.5
[2023-12-17] MEDS: oxyCODONE HCL IR 5 MG TAB (IMMEDIATE RELEASE) PO PRN (16:48)
[2023-12-17] MEDS: DOCUSATE SODIUM 100 MG CAP PO SCH (20:15)
[2023-12-17] MEDS: POTASSIUM CHLORIDE 10 MEQ TABCR PO SCH (20:16)
[2023-12-17] MEDS: ATORVASTATIN 40 MG TAB PO SCH (20:17)
[2023-12-17] MEDS: ASPIRIN 81 MG ECTAB PO SCH (20:17)
[2023-12-17] MEDS: DOXAZosin MESYLATE TAB 2 MG TAB PO SCH (20:17)
[2023-12-17] MEDS: SENNA 8.6 MG TAB PO SCH (20:18)
[2023-12-17] MEDS ORDERED: metFORMIN HCL 500 MG TAB PO SCH (21:00)
--- NOTE | 2023-12-18 06:44 | Orthopedic Progress Note ---
Date of Service December 18, 2023 Assessment & Plan (1) Status post right knee replacement: Plan: POD #1 s/p Right TKA pt/ot dvt proph with JASON/SCD/ASA plan for d/c home with HHPT Admission and Anticipated Discharge Date Admission Date: December 17, 2023 Subjective POD #1 s/p Right TKA Review of Systems Constitutional: no fever, no chills and no sweats Respiratory: no cough and no dyspnea Cardiovascular: no chest pain and no dyspnea Gastrointestinal: no abdominal pain, no nausea and no vomiting Physical Exam Physical Exam: Laboratory Results POC Glucose 113 mg/dl (70-99) H 12/17/23 20:02 Impressions Knee X-Ray 12/17/23 09:02 XR knee RT 1 or 2V routine CLINICAL HISTORY: Surgical Post Op COMPARISON: Right knee radiographs December 13, 2016. FINDINGS: Alignment of the total right knee arthroplasty is anatomic. No periprosthetic fracture or unexpected radiopaque foreign body. Surgical drain is in place. IMPRESSION: Expected findings following total right knee arthroplasty. ACT 112: Negative or not required by law. Electronically signed by: Ritesh Akins M.D. 12/17/2023 9:59 AM Musculoskeletal: Right Leg: NVDI, calf SNT, negative stephan sign. DP palpable, able to wiggle toes/ankle movement without difficulty. dressing clean dry and intact. Results & Data Vital Signs (Past 12 Hours) Vital Signs Temp Pulse Pulse Resp BP BP Pulse Ox 12/17/23 23:27 36.4 C L 74 20 115/68 93 12/17/23 19:54 58 L 16 94 12/17/23 19:39 36.4 C L 58 L 20 182/93 H 94 O2 Del Method 12/17/23 23:27 Room Air 12/17/23 19:54 Room Air 12/17/23 19:39 Room Air
[2023-12-18 07:05] VITALS: BP 138/70
[2023-12-18 07:05] LABS: Hematocrit (blood only) 36.2 % (42.0-52.0); Hemoglobin 12.3 g/dl (14.0-18.0); Mean Corpuscular Hemoglobin 31.8 pg (25.0-34.0); Mean Corpuscular Volume 93.5 fL (80.0-100.0); Mean Platelet Volume 9.7 fL (9.4-12.4); Platelet Count 208 K/uL (130-400); RDW Coefficient of Variation 12.8 % (11.5-14.5); RDW Standard Deviation 43.8 fL (36.4-46.3); Red Blood Count 3.87 M/uL (4.70-6.10); White Blood Count 9.44 K/ul (4.8-10.8)
[2023-12-18 07:09] LABS: BUN Creatinine Ratio 16.3 (10-20); Calcium 8.7 mg/dl (8.6-10.3); Creatinine Clr Calc Pharmacy 84.7 ml/min; Est GFR (African American) 104.2 ml/min; Est GFR (Non-African American) 89.9 ml/min; Potassium 3.8 mmol/L (3.5-5.1)
[2023-12-18 07:10] VITALS: RESP 18; O2SAT 96
[2023-12-18 07:31] LABS: Estimated Average Glucose 131 mg/dl; Hemoglobin A1C 6.2 % (4.5-5.6)
--- NOTE | 2023-12-18 08:02 | Hospitalist Progress Note ---
Date of Service December 18, 2023 Assessment & Plan (1) Status post right knee replacement: Plan: s/p Right Total Knee Arthroplasty(Right) Utilizing [employer] persona size femur 9 standard tibia F poly 10 medial constrained patella 31 keya- Luis Alberto Fu, on 12/17 Pain control/bowel regimen//IVF/abx/PT/OT per primary service WBC wnl Hgb 15.2--> 12.3, acute blood loss anemia from surgery/dilutional aspect from IVF suspected. EBL 5cc, hemovac output listed as 80cc thus far Home plavix resumed for this morning given hx carotid stenosis DVT proph: ASA 81mg BID ?GI proph Dispo: planning for HHPT per primary service - messaged CM to ensure arranged (2) Carotid artery stenosis: Plan: Plavix resumed for this morning Smoking cessation encouraged Outpt f/u (3) Tobacco abuse: Plan: -Currently smoking ~10 cigarettes daily -Denies need for nicotine patch/gum at this time -Incentive spirometry and albuterol ordered at the time of the consult -Continue to stress the importance of cessation 96% on RA (4) CAD (coronary artery disease): Plan: -Continue Metoprolol as long as BP and HR are stable (5) Type 2 diabetes mellitus: Plan: -Hold metformin -Not on insulin at home -Will start CF of 50 ACHS for now -DMII/HH diet -Pharmacy glycemic consult placed at the time of the consult BSG acceptable (6) HTN (hypertension): Plan: Chronic, stable Remains on amlodipine 10mg, indapamide 2.5mg, losartan 100mg (substituted for olmesartan while inpatient) BP 138/70 Plan Thank you for allowing the hospitalist service to participate in the care of Mr Zaman. Hospitalist service will sign off. Please call with any questions/concerns Admission and Anticipated Discharge Date Admission Date: December 17, 2023 Supervising Physician Co-Signing Physician Notes The patient was not seen by me. The chart was reviewed. Case discussed with CAROLEE Cervantes. Agree with assessment and plan Subjective Evaluated this moring, sitting up in bed, at bedside, doing well. Pain controlled with ordered medications. Eating/drinking without issue. Has not seen therapy yet but anticipating dc this AM quickly. Smoking cessation encouraged. No fever/chills, chest pain, shortness of breath, abdominal pain, nausea/vomiting. wanting to make sure HHPT arranged -- messaged CM. Questions/concerns addressed at this time. Physical Exam Physical Exam: General: WD/WN male sitting up in bed eating breakfast, at bedside, NAD HEENT: head atraumatic, normocephalic,mmm, trachea midline Resp: even/unlabored, bibasilar crackles but no wheezing/racles, 96% on RA CV: RRR, no significant mrg, no pitting edema/calf tenderness GI: +BS, soft/NT ; no maurer MSK/Neuro: dressing to RLE c/d/i, hemovac w/ bloody output sensation intact, dorsiflexion/plantar flexion intact Psych: AOx3, cooperative with evam Results & Data Results & Data Vital Signs (Past 12 Hours) Vital Signs Temp Pulse Resp BP Pulse Ox O2 Del Method 12/18/23 07:09 68 18 96 Room Air 12/18/23 07:04 36.4 C L 61 16 138/70 94 Room Air 12/17/23 23:27 36.4 C L 74 20 115/68 93 Room Air Laboratory Results 12/18/23 12/18/23 12/17/23 Range/Units 07:36 06:04 20:02 WBC 9.44 (4.8-10.8) K/ul RBC 3.87 L (4.70-6.10) M/uL Hgb 12.3 L (14.0-18.0) g/dl Hct 36.2 L (42.0-52.0) % MCV 93.5 (80.0-100.0) fL MCH 31.8 (25.0-34.0) pg MCHC 34.0 (32.0-36.0) g/dL RDW Std Deviation 43.8 (36.4-46.3) fL RDW Coeff of Lupe 12.8 (11.5-14.5) % Plt Count 208 (130-400) K/uL MPV 9.7 (9.4-12.4) fL Sodium 139 (136-145) mmol/L Potassium 3.8 (3.5-5.1) mmol/L Chloride 102 (98-107) mmol/L Carbon Dioxide 31 (21-32) mmol/L Anion Gap 6 (3-11) BUN 13 (6-23) mg/dl Creatinine 0.80 (0.6-1.4) mg/dl Est Cr Clr Drug Dosing 84.7 ml/min Est GFR ( Amer) 104.2 ml/min Est GFR (Non-Af Amer) 89.9 ml/min BUN/Creatinine Ratio 16.3 (10-20) Glucose 119 H (70-99(Fasting)) mg/dl POC Glucose 129 H 113 H (70-99) mg/dl Estimat Average Glucose 131 mg/dl Hemoglobin A1c 6.2 H (4.5-5.6) % Calcium 8.7 (8.6-10.3) mg/dl 12/17/23 12/17/23 12/17/23 Range/Units 16:34 11:33 09:11 WBC (4.8-10.8) K/ul RBC (4.70-6.10) M/uL Hgb (14.0-18.0) g/dl Hct (42.0-52.0) % MCV (80.0-100.0) fL MCH (25.0-34.0) pg MCHC (32.0-36.0) g/dL RDW Std Deviation (36.4-46.3) fL RDW Coeff of Lupe (11.5-14.5) % Plt Count (130-400) K/uL MPV (9.4-12.4) fL Sodium (136-145) mmol/L Potassium (3.5-5.1) mmol/L Chloride (98-107) mmol/L Carbon Dioxide (21-32) mmol/L Anion Gap (3-11) BUN (6-23) mg/dl Creatinine (0.6-1.4) mg/dl Est Cr Clr Drug Dosing ml/min Est GFR ( Amer) ml/min Est GFR (Non-Af Amer) ml/min BUN/Creatinine Ratio (10-20) Glucose (70-99(Fasting)) mg/dl POC Glucose 112 H 127 H 126 H (70-99) mg/dl Estimat Average Glucose mg/dl Hemoglobin A1c (4.5-5.6) % Calcium (8.6-10.3) mg/dl Diagnostic Findings Knee X-Ray 12/17/23 09:02 XR knee RT 1 or 2V routine CLINICAL HISTORY: Surgical Post Op COMPARISON: Right knee radiographs December 13, 2016. FINDINGS: Alignment of the total right knee arthroplasty is anatomic. No periprosthetic fracture or unexpected radiopaque foreign body. Surgical drain is in place. IMPRESSION: Expected findings following total right knee arthroplasty. ACT 112: Negative or not required by law. Electronically signed by: Ritesh Akins M.D. 12/17/2023 9:59 AM PG Care Time/CCT Total # of Minutes Spent Total Time Spent with Patient: Total time spent is greater than 50% in coordination of care (as documented) at patient's floor/unit and/or counseling patient: Coding Level of Care Code 29110 SUB INP/OBS CARE 235MIN Diagnoses Status post right knee replacement Z96.651 Carotid artery stenosis I65.29 Tobacco abuse Z72.0 CAD (coronary artery disease) I25.10 Type 2 diabetes mellitus E11.9 HTN (hypertension) I10
[2023-12-18] MEDS: CHOLECALCIFEROL 25 MCG (1000 UNITS) TAB PO SCH (08:03)
[2023-12-18] MEDS: METOPROLOL SUCC 50MG EXT REL TAB PO SCH (08:03)
[2023-12-18] MEDS: amLODIPine BESYLATE 5 MG TAB PO SCH (08:03)
[2023-12-18] MEDS: MULTIVITAMIN TAB PO SCH (08:04)
[2023-12-18] MEDS: LOSARTAN POTASSIUM 50 MG TAB PO SCH (08:04)
[2023-12-18] MEDS: MAGNESIUM OXIDE 400 MG TAB PO SCH (08:04)
[2023-12-18] MEDS: INDAPAMIDE 1.25 MG TAB PO SCH (08:04)
[2023-12-18] MEDS: CLOPIDOGREL BISULFATE 75 MG TAB PO SCH (08:05)
[2023-12-18] MEDS ORDERED: NON-FORMULARY MEDICATION (Multivitamin tablet) PO SCH (09:00)
[2023-12-18] MEDS ORDERED: CeleBREX 200 MG CAP PO SCH (09:00)
[2023-12-18 10:11] VITALS: PULSE 58
--- NOTE | 2023-12-18 12:50 | Discharge Summary ---
Date of Service December 18, 2023 Admission HPI Per Admitting Provider Mr. Zaman is a pleasant 73-year-old male who presented for preop evaluation prior to upcoming right total knee arthroplasty. He has a longstanding history of right knee pain which is gradually worsened and is now affecting his daily activities including walking standing using stairs. Pain also wakes him at night. He undergone previous injections including steroid as well as viscosupplementation without any significant improvement. He has tried oral anti-inflammatories and Tylenol as well. At this point time is failed conservative measures and wishes to proceed with a right total knee replacement Admission Exam Per Admitting Provider Physical Exam: HT: 5ft 9in WT: 83kg Constitutional: WD/WN, vitals as above no acute distress Respiratory: normal respiratory effort, lungs clear to auscultation no respiratory distress, no labored breathing and does not use accessory muscles Cardiovascular: RRR, no murmur, no edema Gastrointestinal (Abdomen): normal bowel sounds, soft, nontender, no hepatosplenomegaly Musculoskeletal: Knee: + knee abnormal to inspection (RIGHT KNEE), + effusion (+1 effusion), + surgical incision (well healed portals), + limited ROM of knee (ROM 0/3/110), + knee ROM with crepitation, + joint line tenderness (medial joint line) and + George's sign positive; no deformity, no skin erythema, no ecchymosis, no valgus laxity, no varus laxity, anterior drawer test negative, Gregory's sign negative and pivot shift test negative Principal Diagnosis Right Knee Djd Discharge Data Allergies Allergy/AdvReac Type Severity Reaction Status Date / Time No Known Allergies Allergy Verified 12/17/23 05:34 Consultations 12/17/23 10:29 Consult Hospitalist Routine Procedures Performed Operation Date: 12/17/23 07:00 Actual Procedures p Right Total Knee Arthroplasty(Right) - Luis Alberto Jordan DO Ordered Studies 12/17/23 05:00 US - OR guided needle placemen Routine Hospital Course (1) Status post right knee replacement: Patient: ZOYA ZAMAN Admit Date: 12/17/23 MR#: [id number] Att Phy: Luis Alberto Jordan,D.ORenae Acct ID: [id number] Justine Phy: Tre Breaux PA-C Date: 1950 Fam Phy: Age: 73 Location: 3E Sex: M Room/Bed: E[facility] cc: ~ *NOTICE TO RECEIVING [employer]/AGENCY This information is strictly Confidential and protected under [place] law. [place] law prohibits you from making any further disclosure of this information unless further disclosure is expressly permitted by the written consent of the person to whom it pertains or is authorized by law. A general authorization for the release of medical or other information is not sufficient for this purpose. Hospital accepts no responsibility if the information is made available to any other person, INCLUDING THE PATIENT. Date of Service December 18, 2023 Assessment & Plan (1) Status post right knee replacement: Plan: POD #1 s/p Right TKA pt/ot dvt proph with JASON/SCD/ASA plan for d/c home with HHPT Admission and Anticipated Discharge Date Admission Date: December 17, 2023 Subjective POD #1 s/p Right TKA Review of Systems Constitutional: no fever, no chills and no sweats Respiratory: no cough and no dyspnea Cardiovascular: no chest pain and no dyspnea Gastrointestinal: no abdominal pain, no nausea and no vomiting Physical Exam Physical Exam: Laboratory Results POC Glucose 113 mg/dl (70-99) H 12/17/23 20:02 Impressions Knee X-Ray 12/17/23 09:02 XR knee RT 1 or 2V routine CLINICAL HISTORY: Surgical Post Op COMPARISON: Right knee radiographs December 13, 2016. FINDINGS: Alignment of the total right knee arthroplasty is anatomic. No periprosthetic fracture or unexpected radiopaque foreign body. Surgical drain is in place. IMPRESSION: Expected findings following total right knee arthroplasty. ACT 112: Negative or not required by law. Electronically signed by: Ritesh Akins M.D. 12/17/2023 9:59 AM Musculoskeletal: Right Leg: NVDI, calf SNT, negative stephan sign. DP palpable, able to wiggle toes/ankle movement without difficulty. dressing clean dry and intact. Results & Data Vital Signs (Past 12 Hours) Vital Signs Temp Pulse Pulse Resp BP BP Pulse Ox 12/17/23 23:27 36.4 C L 74 20 115/68 93 12/17/23 19:54 58 L 16 94 12/17/23 19:39 36.4 C L 58 L 20 182/93 H 94 O2 Del Method 12/17/23 23:27 Room Air 12/17/23 19:54 Room Air 12/17/23 19:39 Room Air Signed By: <Electronically signed by Juan Diego Goyal PA-C> 12/18/23 0645 <Electronically signed by Gonzalez Peña MD> 12/18/23 0711 Created: 12/18/23 0643 Total Time Total Time Spent Total Time Spent (In Minutes): 5 Discharge Plan Discharge Items Patient Disposition: Home - Home Health Services Reason For Visit: Right Knee Osteoarthritis Discharge Diagnosis: Right knee osteoarthritis Activity: Per Instructions section Non-emergency contact: Surgeon Call non-emergency contact if: you have any medication questions, your pain is not controlled, your temperature is above 101.5, your wound has increased redness and your wound has increased drainage Follow-up/Referrals: Luis Alberto Jordan DO [Surgeon] - ( follow-up with Dr. Jordan or his PA in 2 weeks from the day of surgery for your first postoperative visit.) Tre Breaux [Primary Care Provider] - 12/24/23 10:00 am Diet: Carb Consistent or DM2 Addtl Attending Provider Instructions: ACTIVITY RECOMMENDATIONS: SELF CARE INSTRUCTIONS AFTER TOTAL KNEE REPLACEMENT A. You may need to continue a physical therapy program after discharge from the hospital. There are several options available to you. Your doctor will assist you in selecting the best one for you. 1. An out-patient facility 2 to 3 times a week for therapy or home therapy. 2. Continue working on all exercises taught to you in the hospital. Your goals should be to increase bending of your knee to 90 degrees and beyond and to fully straighten your knee. B. You may progress at your own pace from walking with a walker or crutches to a cane; then to no assistive devices. C. Make walking a part of your daily routine. Be up as much as comfortable with rest periods throughout the day. Rest with leg elevation is very important. Use the ice wrap frequently for the first 3-4 weeks. D. There are no restrictions on activities. You may ride in a car, shop, participate in bulk station agent and all social activities. E. Wear the long elastic stockings (JASON hose) 20 hours a day for 2 weeks after surgery. They can be removed several times a day for laundering and for a bath. F. You may shower, no tub baths until cleared by your doctor. SPECIAL CARE INSTRUCTIONS: VERY IMPORTANT TO READ AND REVIEW A. There are a few signs you need to watch for after you are home. Call [facility] if you notice any of the followin. Increased severe knee pain. Some pain is expected especially when you exercise. 2. Increased swelling in your leg or knee; pain or swelling of the calf muscle in either lower leg. 3. Any fluid drainage from the incision. 4. Shortness of breath or chest pain. B. Please call [facility] at if you have any concerns or questions about your operation or recovery. The doctor or his nurse will return your call promptly. C. You must take antibiotics before dental work, bladder, bowel or other surgery. Your doctor will provide you with a permanent care to carry describing this precaution. IMPORTANT: * REMEMBER TO TAKE ASPIRIN, 81 MG, TWICE DAILY FOR 4 WEEKS UNLESS OTHERWISE DIRECTED. THIS IS YOUR BLOOD THINNER. * HIGH RISK PATIENTS MAY BE PRESCRIBED A STRONGER BLOOD THINNER. THIS WILL BE PROVIDED AT DISCHARGE. * CALL IF INCREASED PAIN, REDNESS, DRAINAGE OR FEVER GREATER THAT 101. * WEAR JASON HOSE 20 HOURS PER DAY FOR 2 WEEKS. * KARLA Dressing - This is a large suction dressing covering your incision. This will help pull any excess drainage from the wound and allow your incision to heal properly. You may shower with this if you can keep the unit outside of the shower. If any bleeding or leakage is noted please call your doctor's office. This will remain on your incision for 7 days and then should be removed. This can be done yourself or by the home nursing staff if applicable. The entire unit is disposable once removed. Once removed, keep incision clean and dry. If redness or drainage is noted, please call your surgeon. . *DERMABOND Prineo- This is a mesh tape dressing that is covered with glue. It should remain in place until the incision is properly healed, usually 10-14 days. This dressing is designed to naturally slough off. You may trim the excess mesh tape as it peels off. Incision may be briefly wet in a shower. Dry immediately by blotting with a clean, dry towel. Do not bath or swim until instructed by your doctor. Do not scratch, rub, or pick at the dressing. Do not apply any topical ointments or lotions until dressing is completely removed and/or instructed by your doctor. There may be a small piece of suture material at one end of your incision. Do not pull or trim this. If it is bothersome or catching on clothing, you may cover it with a band-aid. FOLLOW UP VISIT: If appointment is not already scheduled: Please call [facility] to make a follow-up appointment for 2 weeks after your surgery at . Pending Studies at Discharge: No Stand-Alone Forms: My [facility] Tonight, Pain - Opioid Pain Management, Smoking Cessation Medications and DC Order Prescriptions: New acetaminophen 500 mg tablet 1,000 mg PO Q8 21 Days Qty: 126 0RF aspirin 81 mg tablet,delayed release (DR/EC) 81 mg PO BID 30 Days Qty: 60 0RF cefadroxil 500 mg capsule 500 mg PO BID 14 Days Qty: 28 0RF oxycodone 5 mg tablet 5 - 10 mg PO Q6H PRN (Reason: pain) Qty: 30 0RF Rx Instructions: ongoing therapy, supervising dr latrice jordan. max 6 tabs in 24 hours. date of surgery 12/16/23 Continued indapamide 2.5 mg tablet 2.5 mg PO QAM Qty: 90 3RF clopidogrel 75 mg tablet 75 mg PO QAM Qty: 90 3RF atorvastatin 40 mg tablet 40 mg PO HS Qty: 90 3RF potassium chloride 10 mEq tablet extended release 10 meq PO BID Qty: 180 3RF multivitamin Tablet 1 tab PO DAILY zinc 50 mg tablet 50 mg PO QAM metformin 1,000 mg Tablet 1,000 mg PO BID cholecalciferol (vitamin D3) [Vitamin D3] 1,000 unit Capsule 2,000 unit PO QAM magnesium 500 mg Tablet 15 mg PO QAM vitamin A-vitamin C-vit E-min Tablet 1 tab PO QAM turmeric 400 mg Capsule 400 mg PO QAM metoprolol succinate 100 mg tablet extended release 24 hr 100 mg PO QAM amlodipine 10 mg tablet 10 mg PO QAM doxazosin 2 mg tablet 2 mg PO QPM Rx Instructions: Take 1 tablet by mouth every day at bedtime olmesartan 40 mg tablet 40 mg PO QAM Discontinued aspirin [Aspir-81] 81 mg Tablet,Delayed Release (Dr/Ec) 81 mg PO QAM Krames/Other Patient Handouts: DVT Post Op Prevention, Managing Type 2 Diabetes Admission Data Admit Date/Time: 12/17/23 09:02 Attending Provider: Luis Ablerto Jordan Admit Provider: Luis Alberto Jordan Primary Care Provider: Tre Breaux Other Providers: Luis Alberto Simpson; Darrell Velarde [facility] Other Interventions: Discharge Summary Assessment (RN) Last Done: 12/18/23 10:07
== END 2023-12-18 11:41 | disposition home health service (06) ==
LOC: ASU 04:56 → 3E 04:56
DX: I25.10 Atherosclerotic heart disease of native coronary artery without angina pectoris; Z79.02 Long term (current) use of antithrombotics/antiplatelets; Z79.84 Long term (current) use of oral hypoglycemic drugs; Z79.82 Long term (current) use of aspirin; I10 Essential (primary) hypertension; Z79.899 Other long term (current) drug therapy; M17.11 Unilateral primary osteoarthritis, right knee; E11.9 Type 2 diabetes mellitus without complications; I65.29 Occlusion and stenosis of unspecified carotid artery; F17.210 Nicotine dependence, cigarettes, uncomplicated; Z86.73 Personal history of transient ischemic attack (TIA), and cerebral infarction without residual deficits

== ENCOUNTER 2024-05-09 15:56 | Observation (INO) ==
--- NOTE | 2024-05-09 16:32 | Emergency Department Note ---
History of Present Illness General Chief complaint: Rubio's Palsy Symptoms Stated complaint: LT EYE AND FACE DROOPING, Time Seen by Provider: 05/09/24 16:11 History of Present Illness This is a 74-year-old male that presents to the emergency department via private vehicle accompanied by with complaints of "left-sided facial droop". Patient has this past evening he was working on trimming the hedges and he felt like something perhaps was in his left eye. He then thought maybe the left eye was scratched and then notes that he realized the left side of his face was drooping. 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 He also has a history of "mini stroke" and currently on Plavix and aspirin. The patient denies any chest pain, shortness of breath, nausea, vomiting or headache. No arm or leg weakness. Patient denies any history of stroke. Home Medications Medication Instructions Recorded Confirmed Type cholecalciferol (vitamin D3) 25 2,000 unit PO QAM 01/02/19 05/09/24 History mcg (1,000 unit) capsule (Vitamin D3) metformin 1,000 mg tablet 1,000 mg PO BID 01/12/21 05/09/24 History multivitamin 1 tab PO QAM 02/14/22 05/09/24 History atorvastatin 40 mg tablet 40 mg PO HS #90 tabs 05/06/23 05/09/24 Rx clopidogrel 75 mg tablet 75 mg PO QAM #90 tabs 05/06/23 05/09/24 Rx potassium chloride 10 mEq 10 meq PO BID #180 tabs 06/09/23 05/09/24 Rx tablet,extended release metoprolol succinate 100 mg 100 mg PO QAM 11/07/23 05/09/24 History tablet,extended release 24 hr turmeric 400 mg capsule 400 mg PO QAM 11/07/23 05/09/24 History vitamin A-vitamin C-vit E-min 1 tab PO QAM 11/07/23 05/09/24 History tablet indapamide 2.5 mg tablet 2.5 mg PO QAM #90 tabs 01/28/24 05/09/24 Rx aspirin 81 mg capsule 81 mg PO QAM 03/08/24 05/09/24 History sulfamethoxazole 800 1 tab PO BID 03/08/24 05/09/24 History mg-trimethoprim 160 mg tablet (Bactrim DS) amlodipine 10 mg tablet 10 mg PO QAM #90 tabs 03/23/24 05/09/24 Rx olmesartan 40 mg tablet 40 mg PO QAM #90 tabs 03/23/24 05/09/24 Rx doxazosin 4 mg tablet 4 mg PO HS 05/09/24 05/09/24 History magnesium 15 tab PO QAM 05/09/24 05/09/24 History zinc gluconate 50 mg tablet 50 mg PO QAM 05/09/24 05/09/24 History Allergies Allergy/AdvReac Type Severity Reaction Status Date / Time medical glue AdvReac Intermediate Blister Uncoded 05/09/24 18:27 Past Med/Surg History Problem List (Updated 05/09/24 @ 20:05 by Taiwo Trimble PA-C) Facial droop (Acute) Abnormal computed tomography angiography (CTA) of neck (Acute) Abnormal computed tomography angiography of head (Acute) Lung mass (Acute) Stroke-like symptoms Rubio's palsy (Acute) Surgical wound, non healing (Acute) Status post right knee replacement Arthritis of right knee Carotid artery stenosis Elevated PSA Dizziness (Acute) Chest pain (Acute) Acute chest pain (Acute) TIA (transient ischemic attack) (Chronic) Contusion of right leg (Acute) Hand laceration (Acute) Tobacco abuse Hyperlipidemia CAD (coronary artery disease) Non-obstructive per 2005 cardiac cath (per cardio records) Follows with [facility] Type 2 diabetes mellitus HTN (hypertension) (Chronic) Spinal stenosis (Chronic) Medical History Carotid artery stenosis Carotid duplex 11/20/23: 100% occlusion ARMANI. Approximately 70% stenosis LICA (% stenosis may be falsely elevated secondary to contralateral occlusion). "Results are unchanged" compared to 09/2021 duplex. Hx of vertigo Macular degeneration of left eye Transient ischemic attack (TIA) 10+ years ago Surgical History History of cataract surgery B/L Hx of vasectomy History of tooth extraction History of tonsillectomy and adenoidectomy History of cardiac cath 2005- no stents Family History Other FHx: heart disease Family history of diabetes mellitus Family history of high blood pressure No family history of adverse response to anesthesia Social History Smoking Status: Current every day smoker Cigarettes Per Day: 5 cigs/day (hx tobacco use x 20 years); Second Hand Exposure: Yes ( SMOKES); Do You Dip or Chew Tobacco: Yes (1 can/week > advised none DOS); Hx Alcohol Use: Yes Alcohol type: beer Alcohol Intake Frequency: 2-4 x/Month Alcohol Intake Frequency Comment: 2 beers daily Hx Substance Use: No Preferred Language: Trinidadian Communication Ability: Effective Visual Impairment: No Limitations Hearing Ability: Normal Senior Production Supervisor Required: No Beliefs That Will Affect Care: None Current Living Situation: Spouse current occupational status: employed 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 [employer] Feels Safe at Home: Yes Diet: regular caffeine: Yes Do you think of yourself as: straight/heterosexual Gender Identity: Male Review of Systems A total of 10 systems reviewed and were otherwise negative Physical Exam Vital Signs Vital Signs - 24 hr 05/09/24 16:00 05/09/24 16:35 05/09/24 17:23 Temperature 36.2 C L Temperature Source Temporal Artery Scan Pulse Rate 60 Pulse Rate [Apical] 63 Pulse Rhythm [Apical] Pulse Strength [Apical] Respiratory Rate 16 19 Respiratory Effort / Characteristics Non-Labored Spontaneous Respiratory Depth Normal Respiratory Pattern Blood Pressure 160/74 H Blood Pressure [Left Arm] 150/67 H Blood Pressure Mean 102 Blood Pressure Mean [Left Arm] 94 Blood Pressure Position [Left Arm] Pulse Oximetry 96 96 95 Oxygen Delivery Method Room Air Room Air Room Air Sepsis Recent Fever Within 48 Hours No Sepsis New/Unexplained Change in Mental Status No Sepsis Action Taken by Nursing No Action Required 05/09/24 18:08 Temperature Temperature Source Pulse Rate Pulse Rate [Apical] 64 Pulse Rhythm [Apical] Regular Pulse Strength [Apical] Normal Respiratory Rate 18 Respiratory Effort / Characteristics Non-Labored Respiratory Depth Normal Respiratory Pattern Regular Blood Pressure Blood Pressure [Left Arm] 168/78 H Blood Pressure Mean Blood Pressure Mean [Left Arm] 108 Blood Pressure Position [Left Arm] Sitting Pulse Oximetry 98 Oxygen Delivery Method Room Air Sepsis Recent Fever Within 48 Hours Sepsis New/Unexplained Change in Mental Status Sepsis Action Taken by Nursing VITAL SIGNS - Vital signs and nursing notes were reviewed. Hypertensive, otherwise stable and afebrile. GENERAL -74-year-old male appearing his stated age who is in no acute distress. Communicates well with provider and answers questions appropriately. Left-sided facial droop noted. SKIN - Without rashes. No meningeal or petechial rash. HEAD - NC/AT. EYES - PERRL with EOMI bilaterally. Sclera anicteric. Left eye eyelids will not fully closed. Mild drooping of the left eyelid region extending to the left side of the face and left side of the mouth. EARS - No deformities of external structures noted on gross examination bilaterally.External auditory canals without discharge or otorrhea. Tympanic membranes pearly coreas without retraction or bulging. No fluid or purulent material visualized behind the TM. Handle of malleus, umbo, cone of light, pars tensa/flaccid all easily visualized. NOSE - Midline and without cyanosis. No epistaxis or purulent drainage noted. Septum midline without deviation or septal hematoma noted. MOUTH/OROPHARYNX - Without perioral cyanosis. Buccal mucosa pink and moist and without leukoplakia. Tongue protrudes to the right with equal elevation of palate bilaterally. No tonsillar hypertrophy, erythema, or exudates noted. Fair dentition noted. NECK - Neck with FROM.No nuchal rigidity. LUNGS - CTA CARDIAC - RRR EXTREMITIES - No clubbing or peripheral cyanosis. +5/5 strength noted in UE/LE bilaterally. NEUROLOGIC - Cranial nerves II through XII grossly intact. PSYCH - alert, oriented and pleasant on exam Course Administered Medications Discontinued Medications Ioversol (Optiray 320 125ml) 119 ml IV ONCE ONE Stop: 05/09/24 17:17 Last Admin: 05/09/24 17:16 Dose: 119 ml Documented By: CHOLO Medical Decision Making Laboratory Data 05/09/24 16:30 05/09/24 16:30 Lab Results 05/09/24 Range/Units 16:30 WBC 7.10 (4.8-10.8) K/ul RBC 4.42 L (4.70-6.10) M/uL Hgb 13.6 L (14.0-18.0) g/dl Hct 40.1 L (42.0-52.0) % MCV 90.7 (80.0-100.0) fL MCH 30.8 (25.0-34.0) pg MCHC 33.9 (32.0-36.0) g/dL RDW Std Deviation 49.0 H (36.4-46.3) fL RDW Coeff of Lupe 14.6 H (11.5-14.5) % Plt Count 211 (130-400) K/uL MPV 9.3 L (9.4-12.4) fL Immature Gran % (Auto) 0.1 % Neut % (Auto) 63.5 % Lymph % (Auto) 25.2 % [place] % (Auto) 7.9 % Eos % (Auto) 2.5 % Baso % (Auto) 0.8 % Neut # (Auto) 4.50 (1.40-6.50) K/uL Lymph # (Auto) 1.79 (1.20-3.40) K/uL [place] # (Auto) 0.56 (0.11-0.59) K/uL Eos # (Auto) 0.18 (0.00-0.50) K/uL Baso # (Auto) 0.06 (0.00-0.20) K/uL Immature Gran # (Auto) 0.01 (0.01-0.20) K/uL PT 11.1 (9.0-12.0) Seconds INR 1.0 (0.9-1.1) APTT 27 (21-31) Seconds PTT Ratio 1.0 Sodium 134 L (136-145) mmol/L Potassium 3.6 (3.5-5.1) mmol/L Chloride 101 (98-107) mmol/L Carbon Dioxide 26 (21-32) mmol/L Anion Gap 7 (3-11) BUN 12 (6-23) mg/dl Creatinine 0.91 (0.6-1.4) mg/dl Est Cr Clr Drug Dosing 73.4 ml/min Est GFR ( Amer) 97.2 ml/min Est GFR (Non-Af Amer) 83.9 ml/min BUN/Creatinine Ratio 13.2 (10-20) Glucose 101 H (70-99(Fasting)) mg/dl Calcium 9.4 (8.6-10.3) mg/dl Total Bilirubin 0.4 (0.2-1.0) mg/dl AST 21 (13-39) U/L ALT 14 (7-52) U/L Alkaline Phosphatase 97 (34-104) U/L Total Protein 7.2 (6.0-8.3) gm/dl Albumin 4.6 (3.4-5.0) gm/dl Globulin 2.6 (2.5-4.0) gm/dl Albumin/Globulin Ratio 1.8 (0.9-2) Lyme Disease Screen Negative (Negative) Imaging Data Radiologist's Impression: Head CTA 05/09/24 16:31 CT angio head wo/w CLINICAL HISTORY: L sided facial droop COMPARISON STUDY: No previous studies for comparison. TECHNIQUE: Unenhanced and arterial phase imaging of the head was performed. Intravenous injection of 119 cc of Optiray 320 IV was uneventful. Sagittal and coronal reconstructions were viewed as well as maximal intensity projections on an independent 3-D workstation. Automated exposure control was utilized for the study. A dose lowering technique was utilized adhering to the principles of ALARA. FINDINGS: No acute intracranial hemorrhage, midline shift or mass effect is present. Ventricular system is unremarkable. The basal cisterns are patent. There is mild atrophy. 3.3 cm focus of encephalomalacia within the right parietal lobe represents an old infarct. A 1.4 cm periventricular hypodensity within the right frontal lobe on image 22 is present. There are no findings to suggest acute dural sinus stenosis or acute territorial infarct. There is occlusion of the right internal carotid artery with reconstitution at the level of the cavernous carotid. There is asymmetric diminished caliber of the right supraclinoid ICA. The right sylvian branches are patent. The left M1 and M2 segments are patent. There is extensive calcified plaque within the left cavernous carotids which results in severe stenosis. The bilateral anterior cerebral arteries arise from the left internal carotid artery. There is no intracranial aneurysm. The right vertebral artery is dominant. The basilar artery is patent. There is persistence of the left posterior cerebral artery. The posterior cerebral arteries are patent. IMPRESSION: 1. No acute intracranial hemorrhage or mass effect. 2. 1.4 cm periventricular hypodensity within the right frontal lobe. This represents an age indeterminate infarct. 3. Old right parietal lobe infarct. 4. Age-indeterminate, but likely chronic, occlusion of the right internal carotid artery with reconstitution at the level of the cavernous carotid. No definite acute large vessel occlusion. 5. Extensive calcified plaque within the left cavernous carotid which results in severe stenosis. ACT 112: Negative or not required by law. Electronically signed by: Ritesh Akins M.D. 05/09/2024 5:47 PM Neck CTA 05/09/24 16:31 CT ANGIOGRAPHY OF THE NECK WITH CONTRAST CLINICAL HISTORY: L sided facial droop COMPARISON STUDY: None available at time of interpretation. Technique: CT angiography of the carotid and vertebral arteries was obtained using Optiray and 3D reconstruction on an independent workstation. NASCET criteria was utilized. Automated exposure control was utilized for the study. A dose lowering technique was utilized adhering to the principles of ALARA. Findings: Emphysema within the visualized lung apices is noted. A spiculated right upper lobe lesion is partially imaged on this exam. This measures at least 1.4 cm. This is shown on image 1 of 427. There is no cervical lymphadenopathy. No cervical spine fractures are present. Multilevel degenerative disc disease and facet arthrosis is present. The right common carotid artery is patent. There is abrupt occlusion of the proximal right internal carotid artery with reconstitution at the level of the right cavernous ICA. There is extensive calcified plaque within the proximal left internal carotid artery. Extensive calcification makes evaluation difficult however there is severe (greater than 90%) stenosis of the proximal left internal carotid artery. There is severe stenosis at the origin of the right vertebral artery. The right vertebral artery is dominant. There is no aneurysm or dissection within the neck. IMPRESSION: 1. Occlusion of the proximal right internal carotid artery with reconstitution at the level of the cavernous carotid. Although technically age indeterminate, this occlusion is probably chronic. 2. Severe (greater than 90%) stenosis of the proximal left internal carotid artery due to extensive calcified plaque. 3. Severe stenosis at the origin the right vertebral artery. 4. Partially visualized spiculated right upper lobe lesion, measuring at least 1.4 cm. This is suspicious for a primary lung malignancy. Nonemergent chest CT is recommended. 5. Emphysema. ACT 112: Positive. There are findings on this exam that require communication between the performing entity and the patient following Patient Test Result Information Act ([place] Act 112) guidelines. Electronically signed by: Ritesh Akins M.D. 05/09/2024 5:40 PM MDM Narrative Patient was seen and evaluated as above in room D02. Review was performed of triage nursing notes and vital signs. I did review pertinent previous visits and patient history. After obtaining a thorough history and physical examination the above work up was performed. Patient presents to us today for assessment of left-sided facial droop that began this past . It is now Friday, and several days have passed since the start of the symptoms. He has no strength deficit in the upper or lower extremities. The patient does have left-sided facial droop to include cannot fully close the left eye, and left mouth with minimal movement and the tongue protrudes to the right. When asked the patient to wrinkle the forehead there is still some movement of the left side of the forehead but not full compared to the right. Although presentation is likely secondary to that of Rubio's palsy I do believe that further evaluation is warranted. Options of care were discussed with the patient. IV access was established. Labs were drawn. An EKG was performed. This reveals normal sinus rhythm at a rate of 63 bpm. QTc 409. QRS 100. No ST elevation. CT angios of the head and neck were performed. Results of these as above. They are quite detailed and I did print the reports and provided them to the patient and at bedside. It is important note that there is no acute intracranial hemorrhage or mass effect. There is comment of occlusion of the proximal right ICA with reconstitution at the level of the cavernous carotid. Although tenably age-indeterminate, this occlusion is probably chronic per radiologist. Per review of the chart it appears that this is indeed likely a chronic finding. Remainder of the neck findings are also likely not acute and #4 in the impression regarding the 1.4 cm upper lobe lesion will require further evaluation. To continue, the scan of the brain also reveals a 1.4 cm periventricular hypodensity within the right frontal lobe per radiologist. This represents an age-indeterminate infarct per radiologist. At this time although the patient symptoms are most likely from that of Rubio's palsy, I do believe that further evaluation and management in the inpatient setting is warranted noting these abnormal findings. Patient amenable to proceeding with inpatient management. I discussed the case with the hospitalist service. Please refer to further documentation regarding his stay. GCS: 15 In the evaluation and treatment of this patient the following differential diagnoses were entertained: Rubio's palsy, acute intracranial hemorrhage, concussion, CVA, TIA, electrolyte disturbance, facial palsy, among others Impression & Plan Rubio's palsy, Lung mass, Abnormal computed tomography angiography of head, Abnormal computed tomography angiography (CTA) of neck, Facial droop Discharge Plan Visit Data Chief Complaint: Rubio's Palsy Symptoms Stated Complaint: LT EYE AND FACE DROOPING, ED Provider: Nathen Ferguson ED Midlevel Provider: Taiwo Trimble Discharge Problem: Rubio's palsy, Lung mass, Abnormal computed tomography angiography of head, Abnormal computed tomography angiography (CTA) of neck, Facial droop Patient Disposition: Admitted As Inpatient Condition: Good Forms Stand Alone Forms: [facility] Prescriptions Prescriptions: No Action sulfamethoxazole-trimethoprim [Bactrim DS] 800-160 mg tablet 1 tab PO BID Rx Instructions: STARTED 04/09/24 FOR 21 DAYS. aspirin 81 mg capsule 81 mg PO QAM clopidogrel 75 mg tablet 75 mg PO QAM Qty: 90 3RF atorvastatin 40 mg tablet 40 mg PO HS Qty: 90 3RF potassium chloride 10 mEq tablet extended release 10 meq PO BID Qty: 180 3RF indapamide 2.5 mg tablet 2.5 mg PO QAM Qty: 90 3RF olmesartan 40 mg tablet 40 mg PO QAM Qty: 90 3RF amlodipine 10 mg tablet 10 mg PO QAM Qty: 90 3RF multivitamin Tablet 1 tab PO QAM metformin 1,000 mg Tablet 1,000 mg PO BID cholecalciferol (vitamin D3) [Vitamin D3] 1,000 unit Capsule 2,000 unit PO QAM vitamin A-vitamin C-vit E-min Tablet 1 tab PO QAM turmeric 400 mg Capsule 400 mg PO QAM metoprolol succinate 100 mg tablet extended release 24 hr 100 mg PO QAM zinc gluconate 50 mg Tablet 50 mg PO QAM magnesium Tablet 15 tab PO QAM doxazosin 4 mg tablet 4 mg PO HS Rx Instructions: Take 1 tablet by mouth every day at bedtime. Referrals Referrals: Tre Breaux [Primary Care Provider] -
[2024-05-09 16:42] LABS: Basophils # (auto) 0.06 K/uL (0.00-0.20); Basophils % (auto) 0.8 %; Eosinophils # (auto) 0.18 K/uL (0.00-0.50); Eosinophils % (auto) 2.5 %; Hematocrit (blood only) 40.1 % (42.0-52.0); Hemoglobin 13.6 g/dl (14.0-18.0); Immature Granulocytes # (auto) 0.01 K/uL (0.01-0.20); Immature Granulocytes % (auto) 0.1 %; Lymphocytes # (auto) 1.79 K/uL (1.20-3.40); Lymphocytes % (auto) 25.2 %; Mean Corpuscular Hemoglobin 30.8 pg (25.0-34.0); Mean Corpuscular Hgb Conc 33.9 g/dL (32.0-36.0); Mean Corpuscular Volume 90.7 fL (80.0-100.0); Mean Platelet Volume 9.3 fL (9.4-12.4); Monocytes # (auto) 0.56 K/uL (0.11-0.59); Monocytes % (auto) 7.9 %; Neutrophils % (auto) 63.5 %; Platelet Count 211 K/uL (130-400); RDW Coefficient of Variation 14.6 % (11.5-14.5); Red Blood Count 4.42 M/uL (4.70-6.10)
[2024-05-09 16:58] LABS: Albumin Globulin Ratio 1.8 (0.9-2); Albumin Level 4.6 gm/dl (3.4-5.0); BUN Creatinine Ratio 13.2 (10-20); Bilirubin,Total 0.4 mg/dl (0.2-1.0); Calcium 9.4 mg/dl (8.6-10.3); Creatinine Clr Calc Pharmacy 73.4 ml/min; Est GFR (African American) 97.2 ml/min; Est GFR (Non-African American) 83.9 ml/min; Globulin 2.6 gm/dl (2.5-4.0); Potassium 3.6 mmol/L (3.5-5.1); Total Protein 7.2 gm/dl (6.0-8.3)
[2024-05-09] MEDS: OPTIRAY 320 125ml IV ONE (17:16)
[2024-05-09 17:18] LABS: Partial Thromboplastin Time 27 Seconds (21-31); Prothrombin Time 11.1 Seconds (9.0-12.0)
--- NOTE | 2024-05-09 17:42 | CT Scan Report ---
CT ANGIOGRAPHY OF THE NECK WITH CONTRAST CLINICAL HISTORY: L sided facial droop COMPARISON STUDY: None available at time of interpretation. Technique: CT angiography of the carotid and vertebral arteries was obtained using Optiray and 3D rec onstruction on an independent workstation. NASCET criteria was utilized. Automated exposure control was utilized for the study. A dose lowering technique was utilized adhering to the principles of ALA RA. Findings: Emphysema within the visualized lung apices is noted. A spiculated right upper lobe lesion is partially imaged on this exam. This measures at least 1.4 cm. This is shown on image 1 of 427. The re is no cervical lymphadenopathy. No cervical spine fractures are present. Multilevel degenerative d isc disease and facet arthrosis is present. The right common carotid artery is patent. There is abrup t occlusion of the proximal right internal carotid artery with reconstitution at the level of the rig ht cavernous ICA. There is extensive calcified plaque within the proximal left internal carotid arter y. Extensive calcification makes evaluation difficult however there is severe (greater than 90%) sten osis of the proximal left internal carotid artery. There is severe stenosis at the origin of the righ t vertebral artery. The right vertebral artery is dominant. There is no aneurysm or dissection within the neck. IMPRESSION: 1. Occlusion of the proximal right internal carotid artery with reconstitution at the level of the ca vernous carotid. Although technically age indeterminate, this occlusion is probably chronic. 2. Severe (greater than 90%) stenosis of the proximal left internal carotid artery due to extensive c alcified plaque. 3. Severe stenosis at the origin the right vertebral artery. 4. Partially visualized spiculated right upper lobe lesion, measuring at least 1.4 cm. This is suspic ious for a primary lung malignancy. Nonemergent chest CT is recommended. 5. Emphysema. ACT 112: Positive. There are findings on this exam that require communication between the performing entity and the patient following Patient Test Result Information Act ([place] Act 112) guidelines. Electronically signed by: Ritesh Akins M.D. 05/09/2024 5:40 PM
--- NOTE | 2024-05-09 17:49 | CT Scan Report ---
CT angio head wo/w CLINICAL HISTORY: L sided facial droop COMPARISON STUDY: No previous studies for comparison. TECHNIQUE: Unenhanced and arterial phase imaging of the head was performed. Intravenous injection of 119 cc of Optiray 320 IV was uneventful. Sagittal and coronal reconstructions were viewed as well as maximal intensity projections on an independent 3-D workstation. Automated exposure control was utili [employer] for the study. A dose lowering technique was utilized adhering to the principles of ALARA. FINDINGS: No acute intracranial hemorrhage, midline shift or mass effect is present. Ventricular syst em is unremarkable. The basal cisterns are patent. There is mild atrophy. 3.3 cm focus of encephaloma lacia within the right parietal lobe represents an old infarct. A 1.4 cm periventricular hypodensity within the right frontal lobe on image 22 is present. There are no findings to suggest acute dural si nus stenosis or acute territorial infarct. There is occlusion of the right internal carotid artery wi th reconstitution at the level of the cavernous carotid. There is asymmetric diminished caliber of th e right supraclinoid ICA. The right sylvian branches are patent. The left M1 and M2 segments are freeman nt. There is extensive calcified plaque within the left cavernous carotids which results in severe st enosis. The bilateral anterior cerebral arteries arise from the left internal carotid artery. There i s no intracranial aneurysm. The right vertebral artery is dominant. The basilar artery is patent. The re is persistence of the left posterior cerebral artery. The posterior cerebral arteries are pa tent. IMPRESSION: 1. No acute intracranial hemorrhage or mass effect. 2. 1.4 cm periventricular hypodensity within the right frontal lobe. This represents an age indetermi aidan infarct. 3. Old right parietal lobe infarct. 4. Age-indeterminate, but likely chronic, occlusion of the right internal carotid artery with reconst itution at the level of the cavernous carotid. No definite acute large vessel occlusion. 5. Extensive calcified plaque within the left cavernous carotid which results in severe stenosis. ACT 112: Negative or not required by law. Electronically signed by: Ritesh Akins M.D. 05/09/2024 5:47 PM
[2024-05-09 18:09] VITALS: RESP 18
--- NOTE | 2024-05-09 19:35 | History & Physical Report ---
Date of Service May 09, 2024 Assessment & Plan (1) Rubio's palsy: (2) Carotid artery stenosis: (3) Stroke-like symptoms: Plan: This is a 74-year-old male with PMH of type 2 diabetes, carotid stenosis, hypertension, history of TIA, tobacco use and other medical problems listed below who presents with facial droop since Patient has history of Rubio's palsy and felt like is a similar presentation Head CTA with: 1. No acute intracranial hemorrhage or mass effect. 2. 1.4 cm periventricular hypodensity within the right frontal lobe. This represents an age indeterminate infarct. 3. Old right parietal lobe infarct. 4. Age-indeterminate, but likely chronic, occlusion of the right internal carotid artery with reconstitution at the level of the cavernous carotid. No definite acute large vessel occlusion. 5. Extensive calcified plaque within the left cavernous carotid which results in severe stenosis. Neck CTA with: 1. Occlusion of the proximal right internal carotid artery with reconstitution at the level of the cavernous carotid. Although technically age indeterminate, this occlusion is probably chronic. 2. Severe (greater than 90%) stenosis of the proximal left internal carotid artery due to extensive calcified plaque. 3. Severe stenosis at the origin the right vertebral artery. Lyme negative. Labs largely unremarkable Presentation clinically consistent with Rubio's Palsy, however with history of TIA and carotid stenosis as well as finding of the spiculated mass on CT chest in a smoker, will obtain brain MRI w/wo contrast to evaluate for mets or CVA or other pathology. Continue aspirin, plavix, statin for vascular history Routine neurology consult Starting on prednisone 60mg this evening for 5 day course for suspected Rubio's Palsy as this is within the 72 hour period. (4) Lung mass: Plan: Neck CTA with incidental finding of partially visualized spiculated right upper lobe lesion, measuring at least 1.4 cm. This is suspicious for a primary lung malignancy. CT chest ordered for further evaluation (5) Status post right knee replacement: (6) Surgical wound, non healing: Plan: Knee replacement in Dec with UOC, following with wound care and completed Bactrim course this morning (7) Type 2 diabetes mellitus: Plan: A1c unknown - ordered for AM Hold 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 while in-patient BSG AC HS (8) CAD (coronary artery disease): Plan: No chest pain. Continue aspirin, plavix, statin, beta willi (9) HTN (hypertension): Plan: Continue amlodipine, olmesartan, doxazosin HS DVT Ppx: SQ lovenox Code status: FULL PCP: Namita ([facility]) Dispo: admitted to [facility] Patient seen in collaboration with Dr. Ku. Please see addendum. I spent a total of 75 minutes coordinating, documenting, and providing care for this patient excluding time spent in the performance of separately billed services. History of Present Illness Chief Complaint: Facial droop Primary Care Provider: Tre Breaux This is a 74-year-old male with PMH of type 2 diabetes, carotid stenosis, hypertension, history of TIA, tobacco use and other medical problems listed below who presents with facial droop since . Noticed that he was unable to fully close left eye and noted a left-sided facial droop. Patient has history of Rubio's palsy and felt like this was a similar presentation. Does not remember whether or not he was treated with steroids last time but seems to course resolved quickly. Also with history of TIA on aspirin and Plavix. Denies any focal weakness. No recent fever or chills. No headache, lightheadedness, CP, SOB, N/V, abd pain, dysuria, diarrhea or constipation. Longtime smoker, down to 5 cigarettes a day. Allergies Allergy/AdvReac Type Severity Reaction Status Date / Time medical glue AdvReac Intermediate Blister Uncoded 05/09/24 18:27 Home Medications Medication Instructions Recorded Confirmed Type cholecalciferol (vitamin D3) 25 2,000 unit PO QAM 01/02/19 05/09/24 History mcg (1,000 unit) capsule (Vitamin D3) metformin 1,000 mg tablet 1,000 mg PO BID 01/12/21 05/09/24 History multivitamin 1 tab PO QAM 02/14/22 05/09/24 History atorvastatin 40 mg tablet 40 mg PO HS #90 tabs 05/06/23 05/09/24 Rx clopidogrel 75 mg tablet 75 mg PO QAM #90 tabs 05/06/23 05/09/24 Rx potassium chloride 10 mEq 10 meq PO BID #180 tabs 06/09/23 05/09/24 Rx tablet,extended release metoprolol succinate 100 mg 100 mg PO QAM 11/07/23 05/09/24 History tablet,extended release 24 hr turmeric 400 mg capsule 400 mg PO QAM 11/07/23 05/09/24 History vitamin A-vitamin C-vit E-min 1 tab PO QAM 11/07/23 05/09/24 History tablet indapamide 2.5 mg tablet 2.5 mg PO QAM #90 tabs 01/28/24 05/09/24 Rx aspirin 81 mg capsule 81 mg PO QAM 03/08/24 05/09/24 History sulfamethoxazole 800 1 tab PO BID 03/08/24 05/09/24 History mg-trimethoprim 160 mg tablet (Bactrim DS) amlodipine 10 mg tablet 10 mg PO QAM #90 tabs 03/23/24 05/09/24 Rx olmesartan 40 mg tablet 40 mg PO QAM #90 tabs 03/23/24 05/09/24 Rx doxazosin 4 mg tablet 4 mg PO HS 05/09/24 05/09/24 History magnesium 15 tab PO QAM 05/09/24 05/09/24 History zinc gluconate 50 mg tablet 50 mg PO QAM 05/09/24 05/09/24 History Past Med/Surg History Problem List (Updated 05/09/24 @ 20:05 by Taiwo Trimble PA-C) Facial droop (Acute) Abnormal computed tomography angiography (CTA) of neck (Acute) Abnormal computed tomography angiography of head (Acute) Lung mass (Acute) Stroke-like symptoms Rubio's palsy (Acute) Surgical wound, non healing (Acute) Status post right knee replacement Arthritis of right knee Carotid artery stenosis Elevated PSA Dizziness (Acute) Chest pain (Acute) Acute chest pain (Acute) TIA (transient ischemic attack) (Chronic) Contusion of right leg (Acute) Hand laceration (Acute) Tobacco abuse Hyperlipidemia CAD (coronary artery disease) Non-obstructive per 2006 cardiac cath (per cardio records) Follows with [facility] Type 2 diabetes mellitus HTN (hypertension) (Chronic) Spinal stenosis (Chronic) Medical History Carotid artery stenosis Carotid duplex 11/20/23: 100% occlusion ARMANI. Approximately 70% stenosis LICA (% stenosis may be falsely elevated secondary to contralateral occlusion). "Results are unchanged" compared to 09/2021 duplex. Hx of vertigo Macular degeneration of left eye Transient ischemic attack (TIA) 10+ years ago Surgical History History of cataract surgery B/L Hx of vasectomy History of tooth extraction History of tonsillectomy and adenoidectomy History of cardiac cath 2006- no stents Family History Other FHx: heart disease Family history of diabetes mellitus Family history of high blood pressure No family history of adverse response to anesthesia Social History Smoking Status: Current every day smoker Cigarettes Per Day: 5 cigs/day (hx tobacco use x 20 years); Second Hand Exposure: Yes ( SMOKES); Do You Dip or Chew Tobacco: Yes (1 can/week > advised none DOS); Hx Alcohol Use: Yes Alcohol type: beer Alcohol Intake Frequency: 2-4 x/Month Alcohol Intake Frequency Comment: 2 beers daily Hx Substance Use: No Preferred Language: [place] Communication Ability: Effective Visual Impairment: No Limitations Hearing Ability: Normal Plumber'S Helper Required: No Beliefs That Will Affect Care: None Current Living Situation: Spouse current occupational status: employed 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 Physical Exam Physical Exam: General: Lying comfortably in bed, not in distress, on room air HEENT: EOMI, MARCIA, unable to close left eye completely, MMM Chest: Clear breath sounds bilaterally, no wheezes or crackles CVS: Regular rate and rhythm, normal heart sounds, no murmur Abdomen: Soft, non tender, not distended, normal bowel sounds Neuro: Awake, alert, oriented, conversing well. Unable to close left eye completely, left facial droop, sensation intact bilaterally including face, strength normal, no pronator drift, finger nose test normal. Extremities: No edema Results & Data Results & Data Vital Signs (Past 12 Hours) Vital Signs Temp Pulse Pulse Resp BP BP Pulse Ox 05/09/24 18:08 64 18 168/78 H 98 05/09/24 17:23 63 19 150/67 H 95 05/09/24 16:35 96 05/09/24 16:00 36.2 C L 60 16 160/74 H 96 O2 Del Method 05/09/24 18:08 Room Air 05/09/24 17:23 Room Air 05/09/24 16:35 Room Air 05/09/24 16:00 Room Air Laboratory Results Short CBC 05/09/24 Range/Units 16:30 WBC 7.10 (4.8-10.8) K/ul Hgb 13.6 L (14.0-18.0) g/dl Hct 40.1 L (42.0-52.0) % Plt Count 211 (130-400) K/uL BMP 05/09/24 16:30 Sodium 134 L Potassium 3.6 Chloride 101 Carbon Dioxide 26 BUN 12 Creatinine 0.91 Glucose 101 H Calcium 9.4 Liver Function 05/09/24 Range/Units 16:30 Total Bilirubin 0.4 (0.2-1.0) mg/dl AST 21 (13-39) U/L ALT 14 (7-52) U/L Alkaline Phosphatase 97 (34-104) U/L Albumin 4.6 (3.4-5.0) gm/dl Diagnostic Findings Head CTA 05/09/24 16:31 CT angio head wo/w CLINICAL HISTORY: L sided facial droop COMPARISON STUDY: No previous studies for comparison. TECHNIQUE: Unenhanced and arterial phase imaging of the head was performed. Intravenous injection of 119 cc of Optiray 320 IV was uneventful. Sagittal and coronal reconstructions were viewed as well as maximal intensity projections on an independent 3-D workstation. Automated exposure control was utilized for the study. A dose lowering technique was utilized adhering to the principles of ALARA. FINDINGS: No acute intracranial hemorrhage, midline shift or mass effect is present. Ventricular system is unremarkable. The basal cisterns are patent. There is mild atrophy. 3.3 cm focus of encephalomalacia within the right parietal lobe represents an old infarct. A 1.4 cm periventricular hypodensity within the right frontal lobe on image 22 is present. There are no findings to suggest acute dural sinus stenosis or acute territorial infarct. There is occlusion of the right internal carotid artery with reconstitution at the level of the cavernous carotid. There is asymmetric diminished caliber of the right supraclinoid ICA. The right sylvian branches are patent. The left M1 and M2 segments are patent. There is extensive calcified plaque within the left cavernous carotids which results in severe stenosis. The bilateral anterior cerebral arteries arise from the left internal carotid artery. There is no intracranial aneurysm. The right vertebral artery is dominant. The basilar artery is patent. There is persistence of the left posterior cerebral artery. The posterior cerebral arteries are patent. IMPRESSION: 1. No acute intracranial hemorrhage or mass effect. 2. 1.4 cm periventricular hypodensity within the right frontal lobe. This represents an age indeterminate infarct. 3. Old right parietal lobe infarct. 4. Age-indeterminate, but likely chronic, occlusion of the right internal carotid artery with reconstitution at the level of the cavernous carotid. No definite acute large vessel occlusion. 5. Extensive calcified plaque within the left cavernous carotid which results in severe stenosis. ACT 112: Negative or not required by law. Electronically signed by: Ritesh Akins M.D. 05/09/2024 5:47 PM Neck CTA 05/09/24 16:31 CT ANGIOGRAPHY OF THE NECK WITH CONTRAST CLINICAL HISTORY: L sided facial droop COMPARISON STUDY: None available at time of interpretation. Technique: CT angiography of the carotid and vertebral arteries was obtained using Optiray and 3D reconstruction on an independent workstation. NASCET criteria was utilized. Automated exposure control was utilized for the study. A dose lowering technique was utilized adhering to the principles of ALARA. Findings: Emphysema within the visualized lung apices is noted. A spiculated right upper lobe lesion is partially imaged on this exam. This measures at least 1.4 cm. This is shown on image 1 of 427. There is no cervical lymphadenopathy. No cervical spine fractures are present. Multilevel degenerative disc disease a nd facet arthrosis is present. The right common carotid artery is patent. There is abrupt occlusion of the proximal right internal carotid artery with reconstitution at the level of the right cavernous ICA. There is extensive calcified plaque within the proximal left internal carotid artery. Extensive calcification makes evaluation difficult however there is severe (greater than 90%) stenosis of the proximal left internal carotid artery. There is severe stenosis at the origin of the right vertebral artery. The right vertebral artery is dominant. There is no aneurysm or dissection within the neck. IMPRESSION: 1. Occlusion of the proximal right internal carotid artery with reconstitution at the level of the cavernous carotid. Although technically age indeterminate, this occlusion is probably chronic. 2. Severe (greater than 90%) stenosis of the proximal left internal carotid artery due to extensive calcified plaque. 3. Severe stenosis at the origin the right vertebral artery. 4. Partially visualized spiculated right upper lobe lesion, measuring at least 1.4 cm. This is suspicious for a primary lung malignancy. Nonemergent chest CT is recommended. 5. Emphysema. ACT 112: Positive. There are findings on this exam that require communication between the performing entity and the patient following Patient Test Result Information Act ([place] Act 112) guidelines. Electronically signed by: Ritesh Akins M.D. 05/09/2024 5:40 PM Code Status & VTE Plan VTE Prophylaxis Plan VTE Prophylaxis will be ordered: Yes Supervising Physician Co-Signing Physician Notes Patient was seen and examined with Tricia Robbins PA-C at bedside. Chart reviewed. Case discussed with Tricia Robbins PA-C and agree with the documentation above and I have made necessary changes wherever necessary. (2) Carotid artery stenosis Laterality: unspecified laterality Qualified Code(s): I65.29 - Occlusion and stenosis of unspecified carotid artery (6) Surgical wound, non healing Encounter type: subsequent encounter Qualified Code(s): T81.89XD - Other complications of procedures, not elsewhere classified, subsequent encounter (8) CAD (coronary artery disease) Associated angina: without angina Coronary Disease-Associated Artery/Lesion type: [place] artery [place] vs. transplanted heart: [place] heart Qualified Code(s): I25.10 - Atherosclerotic heart disease of [place] coronary artery without angina pectoris (9) HTN (hypertension) Hypertension type: primary hypertension Qualified Code(s): I10 - Essential (primary) hypertension
[2024-05-09] MEDS: OPTIRAY 320 100ml IV ONE (20:00)
[2024-05-09] MEDS ORDERED: GLUCOSE 40% GEL 15 GM TUBE PO PRN (20:36)
[2024-05-09] MEDS ORDERED: DEXTROSE 50% 50 ML SYRINGE IV PRN (20:36)
[2024-05-09] MEDS ORDERED: GLUCOSE 10 TAB/TUBE PO PRN (20:36)
[2024-05-09] MEDS ORDERED: CARBOHYDRATES FOR HYPOGLYCEMIA PO PRN (20:36)
[2024-05-09] MEDS ORDERED: GLUCAGON FOR INJ 1 MG VIAL SQ PRN (20:36)
[2024-05-09] MEDS ORDERED: ONDANSETRON INJ 2 MG/ML 2 ML VIAL IV PRN (21:05)
[2024-05-09] MEDS ORDERED: POLYETHYLENE (MIRALAX) 17 GM PACK PO PRN (21:05)
[2024-05-09] MEDS ORDERED: ACETAMINOPHEN 325 MG TAB PO PRN (21:05)
[2024-05-09] MEDS: INSULIN ASPART PER UNIT CHARGE SC SCH (21:17)
[2024-05-09] MEDS: ATORVASTATIN 40 MG TAB PO SCH (22:15)
[2024-05-09] MEDS: POTASSIUM CHLORIDE 10 MEQ TABCR PO SCH (22:15)
[2024-05-09] MEDS: DOXAZosin MESYLATE 4 MG TAB PO SCH (22:15)
--- NOTE | 2024-05-09 22:51 | Electrocardiogram Report ---
Test Reason : Blood Pressure : / mmHG Vent. Rate : 063 BPM Atrial Rate : 063 BPM P-R Int : 208 ms QRS Dur : 100 ms QT Int : 400 ms P-R-T Axes : 061 053 065 degrees QTc Int : 409 ms Normal sinus rhythm Normal ECG When compared with ECG of 17-NOV-2023 13:30, No significant change was found Confirmed by Tashi Brito ([id number]) on 05/09/2024 10:51:38 PM Referred By: Confirmed By:Tashi Brito
[2024-05-09] MEDS: LORazepam 0.5 MG in SYRINGE 0.25 ML IV PRN (23:21)
[2024-05-09] MEDS: GADOBUTROL 30ML VIAL IV ONE (23:54)
--- NOTE | 2024-05-10 01:39 | CT Scan Report ---
Exam(s): CT CHEST With Contrast IV Amt: 94ml EXAM: CT Chest With Intravenous Contrast CLINICAL HISTORY: Spiculated lesion, eval for lung ca. TECHNIQUE: Axial computed tomography images of the chest with intravenous contrast. CTDI is 21.91 mGy and DLP is 762.21 mGy-cm. Automated exposure control was utilized for the study. A dose lowering technique was utilized adhering to the principles of ALARA. CONTRAST: Patient received 94ml of IV contrast COMPARISON: Chest radiograph 11/17/2023 FINDINGS: Lungs: Emphysema is noted. No pulmonary mass or consolidation. Pleural space: Unremarkable. No pneumothorax. No significant effusion. Heart: Coronary artery calcifications are present. No cardiomegaly. No significant pericardial effusion. Bones/joints: There are degenerative changes of the spine. No acute fracture. No dislocation. Soft tissues: Indeterminant 2.7 x 5.2 x 5.0 cm mass of the subcutaneous tissues of the lower chest at midline. Vasculature: Mild atherosclerosis. No aneurysm. Lymph nodes: Unremarkable. No enlarged lymph nodes. IMPRESSION: 1. No pulmonary mass or consolidation. 2. Indeterminant 2.7 x 5.2 x 5.0 cm mass of the subcutaneous tissues of the lower chest at midline. 3. Emphysema is noted. Emphysema is an independent risk factor for lung cancer. Recommend evaluation for low dose lung cancer screening protocol. Electronically signed by: Marycarmen Adan MD 05/10/24 01:39 AM
--- NOTE | 2024-05-10 03:11 | Magnetic Resonance Report ---
Exam(s): MRI HEAD W/WO Contrast IV Amt: 7cc gadavist EXAM: MR Head Without and With Intravenous Contrast CLINICAL HISTORY: Reason for exam: stroke eval. TECHNIQUE: Magnetic resonance images of the head/brain without and with intravenous contrast in multiple planes. CONTRAST: Patient received 7cc gadavist of IV contrast COMPARISON: Comparison made to prior head CT from May 09, 2024. FINDINGS: Brain: There is a remote ischemic injury of the right parietal lobe with encephalomalacia and gliosis. Mild nonspecific white matter changes. There is loss of the normal right ICA flow void concerning for slow flow or no blood flow. No mass. No hemorrhage. No acute infarct. No evidence of abnormal enhancement. The dural venous sinuses are patent. Ventricles: Advanced ventriculomegaly. Bones/joints: Unremarkable. No acute fracture. Sinuses: Chronic maxillary and ethmoid sinusitis. No acute sinusitis. Mastoid air cells: Unremarkable as visualized. No mastoid effusion. Orbits: Bilateral lens replacements. IMPRESSION: No evidence of acute intracranial pathology. Loss of the normal right ICA flow void concerning for slow flow or no blood flow. Remote ischemic injury of the right parietal lobe with encephalomalacia and gliosis. Electronically signed by: Victorina Farrell MD 05/10/24 03:10 AM
[2024-05-10 06:56] LABS: Hematocrit (blood only) 40.5 % (42.0-52.0); Hemoglobin 14.1 g/dl (14.0-18.0); Mean Corpuscular Hemoglobin 31.6 pg (25.0-34.0); Mean Corpuscular Hgb Conc 34.8 g/dL (32.0-36.0); Mean Corpuscular Volume 90.8 fL (80.0-100.0); Mean Platelet Volume 9.5 fL (9.4-12.4); Platelet Count 232 K/uL (130-400); RDW Coefficient of Variation 14.6 % (11.5-14.5); Red Blood Count 4.46 M/uL (4.70-6.10)
[2024-05-10 07:34] LABS: Estimated Average Glucose 114 mg/dl; Hemoglobin A1C 5.6 % (4.5-5.6)
[2024-05-10] MEDS: CHOLECALCIFEROL 25 MCG (1000 UNITS) TAB PO SCH (08:15)
[2024-05-10] MEDS: LOSARTAN POTASSIUM 50 MG TAB PO SCH (08:15)
[2024-05-10] MEDS: MULTIVITAMIN TAB PO SCH (08:15)
[2024-05-10] MEDS: ASPIRIN 81 MG ECTAB PO SCH (08:15)
[2024-05-10] MEDS: amLODIPine BESYLATE 5 MG TAB PO SCH (08:15)
[2024-05-10] MEDS: INDAPAMIDE 1.25 MG TAB PO SCH (08:15)
[2024-05-10] MEDS: METOPROLOL SUCC 50MG EXT REL TAB PO SCH (08:15)
[2024-05-10] MEDS: CLOPIDOGREL BISULFATE 75 MG TAB PO SCH (08:15)
[2024-05-10] MEDS: ENOXAPARIN INJ 40 MG/0.4 ML SYR SQ SCH (08:15)
--- NOTE | 2024-05-10 08:23 | Hospitalist Progress Note ---
Date of Service May 10, 2024 Assessment & Plan (1) Rubio's palsy: (2) Carotid artery stenosis: (3) Stroke-like symptoms: (4) Status post right knee replacement: (5) Surgical wound, non healing: (6) Type 2 diabetes mellitus: (7) CAD (coronary artery disease): (8) HTN (hypertension): (9) Chest mass: Plan Pt is a 74-year-old male with PMHx significant for type 2 diabetes, carotid stenosis, hypertension, history of TIA, tobacco use who presents with left sided facial droop of 4 days duration. Facial Droop, left Hx of CVA Facial droop of 4 days duration Lyme screen negative Head CTA noting old infarcts of R frontal and parietal lobes, R ICA occlusion and severe stenosis of L cavernous carotid Neck CTA noting 90%/severe stenosis of proximal L ICA, occlusion of proximal R ICA and severe stenosis of R vertebral artery, emphysema and possible RUL malignancy Brain MRI noting loss of normal R ICA blood flow concerning for slow flow or no blood flow, remote ischemia of of R parietal lobe and chronic sinusitis Diff dx includes [place] palsy vs. stroke vs. other Neurology consulted for further recs, appreciated Continue aspirin, plavix, statin Continue with po prednisone 60mg daily Continue to monitor Carotid Stenosis Vertebral artery Stenosis Noted on imaging as above Vascular consulted, appreciate further recs Chest Mass Neck CTA noting possible lung mass, recommended chest CT for further evaluation Chest CT noting NO lung mass but noted a mass of the subcutaneous tissues of the lower chest wall at midline measuring 2.7 x 5.2 x 5.0cm Status post right knee replacement Surgical wound, non healing Knee replacement in Dec with UOC, following with wound care and completed Bactrim course morning of admission Type 2 diabetes mellitus Hgba1c normal at 5.1 Hold 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 while in-patient BSG AC HS CAD (coronary artery disease) No chest pain Continue aspirin, plavix, statin, beta willi HTN (hypertension) Continue amlodipine, olmesartan, doxazosin, indapamide, metoprolol Diet: HH/DMII DVT Ppx: SQ lovenox Dispo: PT/OT ordered for further recs Admission and Anticipated Discharge Date Admission Date: May 09, 2024 Results & Data Results & Data Vital Signs (Past 12 Hours) Vital Signs Temp Pulse Pulse Resp BP BP Pulse Ox 07/01/24 07:53 05/10/24 07:43 36.4 C L 61 18 147/76 H 95 05/10/24 06:56 61 05/10/24 04:15 36.9 C 54 L 18 144/70 H 97 05/10/24 00:00 54 L 05/09/24 23:35 36.8 C 59 L 18 150/67 H 96 05/09/24 21:05 05/09/24 21:00 61 05/09/24 20:30 05/09/24 20:30 36.8 C 60 18 155/73 H 94 Pulse Ox O2 Del Method O2 Del Method 05/10/24 07:53 Room Air 05/10/24 07:43 Room Air 05/10/24 06:56 05/10/24 04:15 Room Air 05/10/24 00:00 05/09/24 23:35 Room Air 05/09/24 21:05 94 Room Air 05/09/24 21:00 05/09/24 20:30 Room Air 05/09/24 20:30 Room Air Diagnostic Findings Head CTA 05/09/24 16:31 CT angio head wo/w CLINICAL HISTORY: L sided facial droop COMPARISON STUDY: No previous studies for comparison. TECHNIQUE: Unenhanced and arterial phase imaging of the head was performed. Intravenous injection of 119 cc of Optiray 320 IV was uneventful. Sagittal and coronal reconstructions were viewed as well as maximal intensity projections on an independent 3-D workstation. Automated exposure control was utilized for the study. A dose lowering technique was utilized adhering to the principles of ALARA. FINDINGS: No acute intracranial hemorrhage, midline shift or mass effect is present. Ventricular system is unremarkable. The basal cisterns are patent. There is mild atrophy. 3.3 cm focus of encephalomalacia within the right parietal lobe represents an old infarct. A 1.4 cm periventricular hypodensity within the right frontal lobe on image 22 is present. There are no findings to suggest acute dural sinus stenosis or acute territorial infarct. There is occlusion of the right internal carotid artery with reconstitution at the level of the cavernous carotid. There is asymmetric diminished caliber of the right supraclinoid ICA. The right sylvian branches are patent. The left M1 and M2 segments are patent. There is extensive calcified plaque within the left cavernous carotids which results in severe stenosis. The bilateral anterior cerebral arteries arise from the left internal carotid artery. There is no intracranial aneurysm. The right vertebral artery is dominant. The basilar artery is patent. There is persistence of the left posterior cerebral artery. The posterior cerebral arteries are patent. IMPRESSION: 1. No acute intracranial hemorrhage or mass effect. 2. 1.4 cm periventricular hypodensity within the right frontal lobe. This represents an age indeterminate infarct. 3. Old right parietal lobe infarct. 4. Age-indeterminate, but likely chronic, occlusion of the right internal carotid artery with reconstitution at the level of the cavernous carotid. No definite acute large vessel occlusion. 5. Extensive calcified plaque within the left cavernous carotid which results in severe stenosis. ACT 112: Negative or not required by law. Electronically signed by: Ritesh Akins M.D. 05/09/2024 5:47 PM Neck CTA 05/09/24 16:31 CT ANGIOGRAPHY OF THE NECK WITH CONTRAST CLINICAL HISTORY: L sided facial droop COMPARISON STUDY: None available at time of interpretation. Technique: CT angiography of the carotid and vertebral arteries was obtained using Optiray and 3D reconstruction on an independent workstation. NASCET criteria was utilized. Automated exposure control was utilized for the study. A dose lowering technique was utilized adhering to the principles of ALARA. Findings: Emphysema within the visualized lung apices is noted. A spiculated right upper lobe lesion is partially imaged on this exam. This measures at least 1.4 cm. This is shown on image 1 of 427. There is no cervical lymphadenopathy. No cervical spine fractures are present. Multilevel degenerative disc disease and facet arthrosis is present. The right common carotid artery is patent. There is abrupt occlusion of the proximal right internal carotid artery with reconstitution at the level of the right cavernous ICA. There is extensive calcified plaque within the proximal left internal carotid artery. Extensive calcification makes evaluation difficult however there is severe (greater than 90%) stenosis of the proximal left internal carotid artery. There is severe stenosis at the origin of the right vertebral artery. The right vertebral artery is dominant. There is no aneurysm or dissection within the neck. IMPRESSION: 1. Occlusion of the proximal right internal carotid artery with reconstitution at the level of the cavernous carotid. Although technically age indeterminate, this occlusion is probably chronic. 2. Severe (greater than 90%) stenosis of the proximal left internal carotid artery due to extensive calcified plaque. 3. Severe stenosis at the origin the right vertebral artery. 4. Partially visualized spiculated right upper lobe lesion, measuring at least 1.4 cm. This is suspicious for a primary lung malignancy. Nonemergent chest CT is recommended. 5. Emphysema. ACT 112: Positive. There are findings on this exam that require communication between the performing entity and the patient following Patient Test Result Information Act ([place] Act 112) guidelines. Electronically signed by: Ritesh Akins M.D. 05/09/2024 5:40 PM Brain MRI 05/09/24 19:23 Exam(s): MRI HEAD W/WO Contrast IV Amt: 7cc gadavist EXAM: MR Head Without and With Intravenous Contrast CLINICAL HISTORY: Reason for exam: stroke eval. TECHNIQUE: Magnetic resonance images of the head/brain without and with intravenous contrast in multiple planes. CONTRAST: Patient received 7cc gadavist of IV contrast COMPARISON: Comparison made to prior head CT from May 09, 2024. FINDINGS: Brain: There is a remote ischemic injury of the right parietal lobe with encephalomalacia and gliosis. Mild nonspecific white matter changes. There is loss of the normal right ICA flow void concerning for slow flow or no blood flow. No mass. No hemorrhage. No acute infarct. No evidence of abnormal enhancement. The dural venous sinuses are patent. Ventricles: Advanced ventriculomegaly. Bones/joints: Unremarkable. No acute fracture. Sinuses: Chronic maxillary and ethmoid sinusitis. No acute sinusitis. Mastoid air cells: Unremarkable as visualized. No mastoid effusion. Orbits: Bilateral lens replacements. IMPRESSION: No evidence of acute intracranial pathology. Loss of the normal right ICA flow void concerning for slow flow or no blood flow. Remote ischemic injury of the right parietal lobe with encephalomalacia and gliosis. Electronically signed by: Victorina Farrell MD 05/10/24 03:[address] 05/09/24 19:23 Exam(s): CT CHEST With Contrast IV Amt: 94ml EXAM: CT Chest With Intravenous Contrast CLINICAL HISTORY: Spiculated lesion, eval for lung ca. TECHNIQUE: Axial computed tomography images of the chest with intravenous contrast. CTDI is 21.91 mGy and DLP is 762.21 mGy-cm. Automated exposure control was utilized for the study. A dose lowering technique was utilized adhering to the principles of ALARA. CONTRAST: Patient received 94ml of IV contrast COMPARISON: Chest radiograph 11/17/2023 FINDINGS: Lungs: Emphysema is noted. No pulmonary mass or consolidation. Pleural space: Unremarkable. No pneumothorax. No significant effusion. Heart: Coronary artery calcifications are present. No cardiomegaly. No significant pericardial effusion. Bones/joints: There are degenerative changes of the spine. No acute fracture. No dislocation. Soft tissues: Indeterminant 2.7 x 5.2 x 5.0 cm mass of the subcutaneous tissues of the lower chest at midline. Vasculature: Mild atherosclerosis. No aneurysm. Lymph nodes: Unremarkable. No enlarged lymph nodes. IMPRESSION: 1. No pulmonary mass or consolidation. 2. Indeterminant 2.7 x 5.2 x 5.0 cm mass of the subcutaneous tissues of the lower chest at midline. 3. Emphysema is noted. Emphysema is an independent risk factor for lung cancer. Recommend evaluation for low dose lung cancer screening protocol. Electronically signed by: Mayrcarmen Adan MD 05/10/24 01:39 AM (2) Carotid artery stenosis Laterality: unspecified laterality Qualified Code(s): I65.29 - Occlusion and stenosis of unspecified carotid artery (5) Surgical wound, non healing Encounter type: subsequent encounter Qualified Code(s): T81.89XD - Other complications of procedures, not elsewhere classified, subsequent encounter (7) CAD (coronary artery disease) Coronary Disease-Associated Artery/Lesion type: [place] artery [place] vs. transplanted heart: [place] heart Associated angina: without angina Qualified Code(s): I25.10 - Atherosclerotic heart disease of [place] coronary artery without angina pectoris (8) HTN (hypertension) Hypertension type: primary hypertension Qualified Code(s): I10 - Essential (primary) hypertension
[2024-05-10] MEDS ORDERED: NON-FORMULARY MEDICATION (Vitamin A-Vitamin C-Vit E-Min Tablet) PO SCH (09:00)
[2024-05-10] MEDS: predniSONE 20 MG TAB PO SCH (09:09)
--- NOTE | 2024-05-10 09:11 | Neurology Consultation ---
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 MRI was negative for stroke Plan -- Agree with 7 day steroid course (no taper necessary) -- eye drops/ointment PRN -- no further neurologic work up Telehealth Consultation Telehealth Information Telehealth Information: I performed this visit using a real-time telehealth connection between my location and the patients location ([facility]). After connecting through interactive tele-video, patient was identified by name and date of and/or wristband check.Patient (or authorized healthcare dental detail representative) was informed that this was a telemedicine visit and it was being conducted confidentially over secure lines. My office door was closed and no one else was present in the room with me.Patient (or authorized healthcare dental detail representative) provided consent to proceed with the visit, expressed an understanding of privacy and security of the telemedicine visit, and gave permission to have a hospital dental detail representative in the room in order to assist with the visit and to conduct portions of the visit, as needed. I informed the patient (or authorized healthcare dental detail representative) that I reviewed their record and presented the opportunity for them to ask any questions regarding the visit today. The patient agreed to participate. History of Present Illness Reason for Consultation: bells palsy Attending Physician: Isis Kligore MD History of Present Illness He reports that about 3 days ago he first noticed that the left side of his face was drooping and he was having trouble closing that eye. He has a history of bells palsy on the right in the past and thinks this was similar but can't really remember. His wanted him to come in since it had persisted. He reports no difficulty walking, chewing, swallowing, no double vision, vertigo or difficulty with language. He denies SOB, fevers, chest pain, headaches or any recent foreign travel. Allergies Allergy/AdvReac Type Severity Reaction Status Date / Time propolis (bee glue) AdvReac Intermediate "MEDICAL Verified 05/09/24 21:21 GLUE"-BLISTER Home Medications Medication Instructions Recorded Confirmed Type cholecalciferol (vitamin D3) 25 2,000 unit PO QAM 01/02/19 05/09/24 History mcg (1,000 unit) capsule (Vitamin D3) metformin 1,000 mg tablet 1,000 mg PO BID 01/12/21 05/09/24 History multivitamin 1 tab PO QAM 02/14/22 05/09/24 History atorvastatin 40 mg tablet 40 mg PO HS #90 tabs 05/06/23 05/09/24 Rx clopidogrel 75 mg tablet 75 mg PO QAM #90 tabs 05/06/23 05/09/24 Rx potassium chloride 10 mEq 10 meq PO BID #180 tabs 06/09/23 05/09/24 Rx tablet,extended release metoprolol succinate 100 mg 100 mg PO QAM 11/07/23 05/09/24 History tablet,extended release 24 hr turmeric 400 mg capsule 400 mg PO QAM 11/07/23 05/09/24 History vitamin A-vitamin C-vit E-min 1 tab PO QAM 11/07/23 05/09/24 History tablet indapamide 2.5 mg tablet 2.5 mg PO QAM #90 tabs 01/28/24 05/09/24 Rx aspirin 81 mg capsule 81 mg PO QAM 03/08/24 05/09/24 History sulfamethoxazole 800 1 tab PO BID 03/08/24 05/09/24 History mg-trimethoprim 160 mg tablet (Bactrim DS) amlodipine 10 mg tablet 10 mg PO QAM #90 tabs 03/23/24 05/09/24 Rx olmesartan 40 mg tablet 40 mg PO QAM #90 tabs 03/23/24 05/09/24 Rx doxazosin 4 mg tablet 4 mg PO HS 05/09/24 05/09/24 History magnesium 15 tab PO QAM 05/09/24 05/09/24 History zinc gluconate 50 mg tablet 50 mg PO QAM 05/09/24 05/09/24 History Patient History Medical History Carotid artery stenosis Carotid duplex 11/20/23: 100% occlusion ARMANI. Approximately 70% stenosis LICA (% stenosis may be falsely elevated secondary to contralateral occlusion). "Results are unchanged" compared to 09/2021 duplex. Hx of vertigo Macular degeneration of left eye Transient ischemic attack (TIA) 10+ years ago Surgical History History of cataract surgery B/L Hx of vasectomy History of tooth extraction History of tonsillectomy and adenoidectomy History of cardiac cath 2006- no stents Family History Other FHx: heart disease Family history of diabetes mellitus Family history of high blood pressure No family history of adverse response to anesthesia Social History Smoking Status: Current every day smoker Tobacco Type: Cigarettes Cigarettes Per Day: 7; Second Hand Exposure: Yes ( SMOKES); Do You Dip or Chew Tobacco: No; Hx Alcohol Use: Yes Alcohol type: beer Alcohol Intake Frequency: 2-4 x/Month Alcohol Intake Frequency Comment: 2 beers daily Hx Substance Use: No Preferred Language: Kazakh Communication Ability: Effective Visual Impairment: No Limitations Hearing Ability: Normal C D Still Operator Required: No Beliefs That Will Affect Care: None Current Living Situation: Spouse current occupational status: employed 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 Feels Safe at Home: Yes Safety Concerns: Feels Safe At This Time Diet: regular caffeine: Yes Do you think of yourself as: straight/heterosexual Gender Identity: Male Assistive Devices: Denture - Upper and Denture - Lower Physical Exam NEUROLOGIC EXAMINATION: Mental Status:alert, oriented to time, place, person, normal recent memory, normal remote memory, normal attention span, normal concentration, normal language, and normal fund of knowledge Cranial Nerves: CN 2 - no visual defect on confrontation and pupils round, equal, reactive to light CN 3, 4, 6 - extra-ocular movements intact and no nystagmus CN 5 - facial sensation intact CN 7 - left facial droop, incomplete eye closure on the left, asymmetric blinking on the left CN 8 - intact hearing CN 9, 10 - palate symmetric, normal gag CN 11 - good shoulder shrug CN 12 - tongue midline MOTOR: Strength was at least antigravity throughout, Pronator drift was absent, and There were no abnormal movements SENSATION: intact and symmetric to pinprick, light touch, vibration and joint position GAIT: stable, no ataxia, and can perform tandem walking COORDINATION: no ataxia with finger to nose testing and heel to silva testing REFLEXES: cannot assess over telemedicine Results & Data Vital Signs (Past 12 Hours) Vital Signs Temp Pulse Pulse Resp BP BP Pulse Ox 05/10/24 07:53 05/10/24 07:43 36.4 C L 61 18 147/76 H 95 05/10/24 06:56 61 05/10/24 04:15 36.9 C 54 L 18 144/70 H 97 05/10/24 00:00 54 L 05/09/24 23:35 36.8 C 59 L 18 150/67 H 96 05/09/24 21:05 Pulse Ox O2 Del Method O2 Del Method 05/10/24 07:53 Room Air 05/10/24 07:43 Room Air 05/10/24 06:56 05/10/24 04:15 Room Air 05/10/24 00:00 05/09/24 23:35 Room Air 05/09/24 21:05 94 Room Air Laboratory Results Abnormal Lab Results 05/09/24 05/09/24 05/10/24 16:30 21:10 05:57 WBC 7.10 7.00 RBC 4.42 L 4.46 L Hgb 13.6 L 14.1 Hct 40.1 L 40.5 L MCV 90.7 90.8 MCH 30.8 31.6 MCHC 33.9 34.8 RDW Std Deviation 49.0 H 49.0 H RDW Coeff of Lupe 14.6 H 14.6 H Plt Count 211 232 MPV 9.3 L 9.5 Immature Gran % (Auto) 0.1 Neut % (Auto) 63.5 Lymph % (Auto) 25.2 [place] % (Auto) 7.9 Eos % (Auto) 2.5 Baso % (Auto) 0.8 Neut # (Auto) 4.50 Lymph # (Auto) 1.79 [place] # (Auto) 0.56 Eos # (Auto) 0.18 Baso # (Auto) 0.06 Immature Gran # (Auto) 0.01 PT 11.1 INR 1.0 APTT 27 PTT Ratio 1.0 Sodium 134 L Potassium 3.6 Chloride 101 Carbon Dioxide 26 Anion Gap 7 BUN 12 Creatinine 0.91 Est Cr Clr Drug Dosing 73.4 Est GFR ( Amer) 97.2 Est GFR (Non-Af Amer) 83.9 BUN/Creatinine Ratio 13.2 Glucose 101 H POC Glucose 115 H Estimat Average Glucose 114 Hemoglobin A1c 5.6 Calcium 9.4 Total Bilirubin 0.4 AST 21 ALT 14 Alkaline Phosphatase 97 Total Protein 7.2 Albumin 4.6 Globulin 2.6 Albumin/Globulin Ratio 1.8 Lyme Disease Screen Negative 05/10/24 08:50 WBC RBC Hgb Hct MCV MCH MCHC RDW Std Deviation RDW Coeff of Lupe Plt Count MPV Immature Gran % (Auto) Neut % (Auto) Lymph % (Auto) [place] % (Auto) Eos % (Auto) Baso % (Auto) Neut # (Auto) Lymph # (Auto) [place] # (Auto) Eos # (Auto) Baso # (Auto) Immature Gran # (Auto) PT INR APTT PTT Ratio Sodium Potassium Chloride Carbon Dioxide Anion Gap BUN Creatinine Est Cr Clr Drug Dosing Est GFR ( Amer) Est GFR (Non-Af Amer) BUN/Creatinine Ratio Glucose POC Glucose 142 H Estimat Average Glucose Hemoglobin A1c Calcium Total Bilirubin AST ALT Alkaline Phosphatase Total Protein Albumin Globulin Albumin/Globulin Ratio Lyme Disease Screen Diagnostic Findings Brain MRI 05/09/24 19:23 Exam(s): MRI HEAD W/WO Contrast IV Amt: 7cc gadavist EXAM: MR Head Without and With Intravenous Contrast CLINICAL HISTORY: Reason for exam: stroke eval. TECHNIQUE: Magnetic resonance images of the head/brain without and with intravenous contrast in multiple planes. CONTRAST: Patient received 7cc gadavist of IV contrast COMPARISON: Comparison made to prior head CT from May 09, 2024. FINDINGS: Brain: There is a remote ischemic injury of the right parietal lobe with encephalomalacia and gliosis. Mild nonspecific white matter changes. There is loss of the normal right ICA flow void concerning for slow flow or no blood flow. No mass. No hemorrhage. No acute infarct. No evidence of abnormal enhancement. The dural venous sinuses are patent. Ventricles: Advanced ventriculomegaly. Bones/joints: Unremarkable. No acute fracture. Sinuses: Chronic maxillary and ethmoid sinusitis. No acute sinusitis. Mastoid air cells: Unremarkable as visualized. No mastoid effusion. Orbits: Bilateral lens replacements. IMPRESSION: No evidence of acute intracranial pathology. Loss of the normal right ICA flow void concerning for slow flow or no blood flow. Remote ischemic injury of the right parietal lobe with encephalomalacia and gliosis. Electronically signed by: Victorina Farrell MD 05/10/24 03:[address] 05/09/24 19:23 Exam(s): CT CHEST With Contrast IV Amt: 94ml EXAM: CT Chest With Intravenous Contrast CLINICAL HISTORY: Spiculated lesion, eval for lung ca. TECHNIQUE: Axial computed tomography images of the chest with intravenous contrast. CTDI is 21.91 mGy and DLP is 762.21 mGy-cm. Automated exposure control was utilized for the study. A dose lowering technique was utilized adhering to the principles of ALARA. CONTRAST: Patient received 94ml of IV contrast COMPARISON: Chest radiograph 11/17/2023 FINDINGS: Lungs: Emphysema is noted. No pulmonary mass or consolidation. Pleural space: Unremarkable. No pneumothorax. No significant effusion. Heart: Coronary artery calcifications are present. No cardiomegaly. No significant pericardial effusion. Bones/joints: There are degenerative changes of the spine. No acute fracture. No dislocation. Soft tissues: Indeterminant 2.7 x 5.2 x 5.0 cm mass of the subcutaneous tissues of the lower chest at midline. Vasculature: Mild atherosclerosis. No aneurysm. Lymph nodes: Unremarkable. No enlarged lymph nodes. IMPRESSION: 1. No pulmonary mass or consolidation. 2. Indeterminant 2.7 x 5.2 x 5.0 cm mass of the subcutaneous tissues of the lower chest at midline. 3. Emphysema is noted. Emphysema is an independent risk factor for lung cancer. Recommend evaluation for low dose lung cancer screening protocol. Electronically signed by: Marycarmen Adan MD 05/10/24 01:39 AM
--- NOTE | 2024-05-10 09:12 | Neurology Consultation ---
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 MRI was negative for stroke Plan -- Agree with 7 day steroid course (no taper necessary) -- eye drops/ointment PRN -- no further neurologic work up Telehealth Consultation Telehealth Information Telehealth Information: I performed this visit using a real-time telehealth connection between my location and the patients location ([facility]). After connecting through interactive tele-video, patient was identified by name and date of and/or wristband check.Patient (or authorized healthcare retail wireless sales representative) was informed that this was a telemedicine visit and it was being conducted confidentially over secure lines. My office door was closed and no one else was present in the room with me.Patient (or authorized healthcare retail wireless sales representative) provided consent to proceed with the visit, expressed an understanding of privacy and security of the telemedicine visit, and gave permission to have a hospital retail wireless sales representative in the room in order to assist with the visit and to conduct portions of the visit, as needed. I informed the patient (or authorized healthcare retail wireless sales representative) that I reviewed their record and presented the opportunity for them to ask any questions regarding the visit today. The patient agreed to participate. History of Present Illness Reason for Consultation: bells palsy Attending Physician: Isis Kilgore MD Allergies Allergy/AdvReac Type Severity Reaction Status Date / Time propolis (bee glue) AdvReac Intermediate "MEDICAL Verified 05/09/24 21:21 GLUE"-BLISTER Home Medications Medication Instructions Recorded Confirmed Type cholecalciferol (vitamin D3) 25 2,000 unit PO QAM 01/02/19 05/09/24 History mcg (1,000 unit) capsule (Vitamin D3) metformin 1,000 mg tablet 1,000 mg PO BID 01/12/21 05/09/24 History multivitamin 1 tab PO QAM 02/14/22 05/09/24 History atorvastatin 40 mg tablet 40 mg PO HS #90 tabs 05/06/23 05/09/24 Rx clopidogrel 75 mg tablet 75 mg PO QAM #90 tabs 05/06/23 05/09/24 Rx potassium chloride 10 mEq 10 meq PO BID #180 tabs 06/09/23 05/09/24 Rx tablet,extended release metoprolol succinate 100 mg 100 mg PO QAM 11/07/23 05/09/24 History tablet,extended release 24 hr turmeric 400 mg capsule 400 mg PO QAM 11/07/23 05/09/24 History vitamin A-vitamin C-vit E-min 1 tab PO QAM 11/07/23 05/09/24 History tablet indapamide 2.5 mg tablet 2.5 mg PO QAM #90 tabs 01/28/24 05/09/24 Rx aspirin 81 mg capsule 81 mg PO QAM 03/08/24 05/09/24 History sulfamethoxazole 800 1 tab PO BID 03/08/24 05/09/24 History mg-trimethoprim 160 mg tablet (Bactrim DS) amlodipine 10 mg tablet 10 mg PO QAM #90 tabs 03/23/24 05/09/24 Rx olmesartan 40 mg tablet 40 mg PO QAM #90 tabs 03/23/24 05/09/24 Rx doxazosin 4 mg tablet 4 mg PO HS 05/09/24 05/09/24 History magnesium 15 tab PO QAM 05/09/24 05/09/24 History zinc gluconate 50 mg tablet 50 mg PO QAM 05/09/24 05/09/24 History Patient History Medical History Carotid artery stenosis Carotid duplex 11/20/23: 100% occlusion ARMANI. Approximately 70% stenosis LICA (% stenosis may be falsely elevated secondary to contralateral occlusion). "Results are unchanged" compared to 09/2021 duplex. Hx of vertigo Macular degeneration of left eye Transient ischemic attack (TIA) 10+ years ago Surgical History History of cataract surgery B/L Hx of vasectomy History of tooth extraction History of tonsillectomy and adenoidectomy History of cardiac cath 2006- no stents Family History Other FHx: heart disease Family history of diabetes mellitus Family history of high blood pressure No family history of adverse response to anesthesia Social History Smoking Status: Current every day smoker Tobacco Type: Cigarettes Cigarettes Per Day: 7; Second Hand Exposure: Yes ( SMOKES); Do You Dip or Chew Tobacco: No; Hx Alcohol Use: Yes Alcohol type: beer Alcohol Intake Frequency: 2-4 x/Month Alcohol Intake Frequency Comment: 2 beers daily Hx Substance Use: No Preferred Language: Rwandan Communication Ability: Effective Visual Impairment: No Limitations Hearing Ability: Normal Servicer Coin Machines Required: No Beliefs That Will Affect Care: None Current Living Situation: Spouse current occupational status: employed 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 [employer] Feels Safe at Home: Yes Safety Concerns: Feels Safe At This Time Diet: regular caffeine: Yes Do you think of yourself as: straight/heterosexual Gender Identity: Male Assistive Devices: Denture - Upper and Denture - Lower Physical Exam NEUROLOGIC EXAMINATION: Mental Status:alert, oriented to time, place, person, normal recent memory, normal remote memory, normal attention span, normal concentration, normal language, and normal fund of knowledge Cranial Nerves: CN 2 - no visual defect on confrontation and pupils round, equal, reactive to light CN 3, 4, 6 - extra-ocular movements intact and no nystagmus CN 5 - facial sensation intact CN 7 - left facial droop, incomplete eye closure on the left, asymmetric blinking on the left CN 8 - intact hearing CN 9, 10 - palate symmetric, normal gag CN 11 - good shoulder shrug CN 12 - tongue midline MOTOR: Strength was at least antigravity throughout, Pronator drift was absent, and There were no abnormal movements SENSATION: intact and symmetric to pinprick, light touch, vibration and joint position GAIT: stable, no ataxia, and can perform tandem walking COORDINATION: no ataxia with finger to nose testing and heel to silva testing REFLEXES: cannot assess over telemedicine Results & Data Vital Signs (Past 12 Hours) Vital Signs Temp Pulse Pulse Resp BP BP Pulse Ox 05/10/24 07:53 05/10/24 07:43 36.4 C L 61 18 147/76 H 95 05/10/24 06:56 61 05/10/24 04:15 36.9 C 54 L 18 144/70 H 97 05/10/24 00:00 54 L 05/09/24 23:35 36.8 C 59 L 18 150/67 H 96 O2 Del Method 05/10/24 07:53 Room Air 05/10/24 07:43 Room Air 05/10/24 06:56 05/10/24 04:15 Room Air 05/10/24 00:00 05/09/24 23:35 Room Air
[2024-05-10 10:53] LABS: Calcium 9.2 mg/dl (8.6-10.3); Magnesium 2.1 mg/dl (1.7-2.4); Potassium 3.7 mmol/L (3.5-5.1)
[2024-05-10 10:59] LABS: BUN Creatinine Ratio 12.4 (10-20); Est GFR (Non-African American) 85.4 ml/min; Phosphorus 3.8 mg/dl (2.5-4.9)
--- NOTE | 2024-05-10 11:32 | Discharge Summary ---
Discharge Summary Date of Service May 10, 2024 Principal Dx & Hospital Course #1 = Principal Diagnosis (1) Rubio's palsy: (2) Carotid artery stenosis: (3) Stroke-like symptoms: (4) Status post right knee replacement: (5) Surgical wound, non healing: (6) Type 2 diabetes mellitus: (7) CAD (coronary artery disease): (8) HTN (hypertension): (9) Chest mass: Plan Pt is a 74-year-old male with PMHx significant for type 2 diabetes, carotid stenosis, hypertension, history of TIA, tobacco use who presents with left sided facial droop of 4 days duration. Facial Droop, left Hx of CVA Facial droop of 4 days duration Lyme screen negative Head CTA noting old infarcts of R frontal and parietal lobes, R ICA occlusion and severe stenosis of L cavernous carotid Neck CTA noting 90%/severe stenosis of proximal L ICA, occlusion of proximal R ICA and severe stenosis of R vertebral artery, emphysema and possible RUL malignancy Brain MRI noting loss of normal R ICA blood flow concerning for slow flow or no blood flow, remote ischemia of of R parietal lobe and chronic sinusitis Diff dx includes [place] palsy vs. stroke vs. other Neurology consulted for further recs. Recommended or stated the following: -physical exam is most consistent with a bells palsy considering the upper and lower face weakness. MRI was negative for stroke -- Agree with 7 day steroid course (no taper necessary) -- eye drops/ointment PRN -- no further neurologic work up Continue aspirin, plavix, statin Continue with po prednisone 60mg daily. Discharged with six more days of prednisone 60mg daily. Discharged with eye ointment for qhs use. PCP followup Carotid Stenosis Vertebral artery Stenosis Noted on imaging as above Pt states he previously followed with Vascular Surgery from [facility] for this who stated they "will not touch me with a ten foot pole" Declines in house vascular surgery consult, consult cancelled. 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 States it has been there for decades. US soft tissue chest wall ordered, notes likely sebaceous cyst. PCP followup, consider general surgery followup for removal if pt agrees. Emphysema Noted on chest imaging Radiology stated the following :"Recommend evaluation for low dose lung cancer screening protocol. Encourage smoking cessation PCP followup Status post right knee replacement Surgical wound, non healing Knee replacement in Dec with [facility], following with wound care and completed Bactrim course morning of admission. 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 Consider general surgery followup for removal if pt agrees. Please ensure followup for carotid and vertebral artery stenosis noted. Pt declined inpatient Vascular followup. For emphysema please ensure evaluation for low dose lung cancer screening protocol Medication Changes From Visit Prednisone 60mg daily for 6 more days Artificial lubricant eye ointment for qhs use Admission HPI Per Admitting Provider This is a 74-year-old male with PMH of type 2 diabetes, carotid stenosis, hypertension, history of TIA, tobacco use and other medical problems listed below who presents with facial droop since . Noticed that he was unable to fully close left eye and noted a left-sided facial droop. Patient has history of Rubio's palsy and felt like this was a similar presentation. Does not remember whether or not he was treated with steroids last time but seems to course resolved quickly. Also with history of TIA on aspirin and Plavix. Denies any focal weakness. No recent fever or chills. No headache, lightheadedness, CP, SOB, N/V, abd pain, dysuria, diarrhea or constipa tion. Longtime smoker, down to 5 cigarettes a day. Admission Exam Per Admitting Provider General: Lying comfortably in bed, not in distress, on room air HEENT: EOMI, MARCIA, unable to close left eye completely, MMM Chest: Clear breath sounds bilaterally, no wheezes or crackles CVS: Regular rate and rhythm, normal heart sounds, no murmur Abdomen: Soft, non tender, not distended, normal bowel sounds Neuro: Awake, alert, oriented, conversing well. Unable to close left eye completely, left facial droop, sensation intact bilaterally including face, strength normal, no pronator drift, finger nose test normal. Extremities: No edema Discharge Exam General: Alert, oriented. No acute distress Skin: fluctuant mass, nontender, slightly erythematous with a noted nevus on top on anterior chest wall near midline Psych: Appropriate mood and affect Neuro: slight facial droop, strength 5/5 bilaterally sensation grossy intact HEENT: NC/AT Chest: fluctuant mass, nontender, slightly erythematous with a noted nevus on top on anterior chest wall near midline CV: RRR Resp: Breath sounds clear bilaterally, no increased effort of breathing. Abdomen: Soft, nontender, nondistended. Extremities: No edema in lower extremities bilaterally. Updated Medication List Medication Instructions Recorded Confirmed Type cholecalciferol (vitamin D3) 25 2,000 unit PO QAM 01/02/19 05/09/24 History mcg (1,000 unit) capsule (Vitamin D3) metformin 1,000 mg tablet 1,000 mg PO BID 01/12/21 05/09/24 History multivitamin 1 tab PO QAM 02/14/22 05/09/24 History atorvastatin 40 mg tablet 40 mg PO HS #90 tabs 05/06/23 05/09/24 Rx clopidogrel 75 mg tablet 75 mg PO QAM #90 tabs 05/06/23 05/09/24 Rx potassium chloride 10 mEq 10 meq PO BID #180 tabs 06/09/23 05/09/24 Rx tablet,extended release metoprolol succinate 100 mg 100 mg PO QAM 11/07/23 05/09/24 History tablet,extended release 24 hr turmeric 400 mg capsule 400 mg PO QAM 11/07/23 05/09/24 History vitamin A-vitamin C-vit E-min 1 tab PO QAM 11/07/23 05/09/24 History tablet indapamide 2.5 mg tablet 2.5 mg PO QAM #90 tabs 01/28/24 05/09/24 Rx aspirin 81 mg capsule 81 mg PO QAM 03/08/24 05/09/24 History amlodipine 10 mg tablet 10 mg PO QAM #90 tabs 03/23/24 05/09/24 Rx olmesartan 40 mg tablet 40 mg PO QAM #90 tabs 03/23/24 05/09/24 Rx doxazosin 4 mg tablet 4 mg PO HS 05/09/24 05/09/24 History magnesium 15 tab PO QAM 05/09/24 05/09/24 History zinc gluconate 50 mg tablet 50 mg PO QAM 05/09/24 05/09/24 History prednisone 20 mg tablet 60 mg (3 x 20 mg) PO DAILY #18 tabs 05/10/24 Rx white petrolatum-mineral oil 83 1 applic ophthalmic (eye) HS #3.5 05/10/24 Rx %-15 % eye ointment (Artificial grams Eye Lubricant) Hospital Stay Data Consultations 05/09/24 18:19 ED Decision to Admit Stat 05/09/24 21:05 Consult Neurology Routine 05/10/24 08:44 Consult Vascular Surgery Routine Diagnostic Imagining Performed 05/09/24 16:31 CT angio head wo/w Stat CT angio neck with con Stat 05/09/24 19:23 CT chest diagnostic w con Routine MR brain wo/w con Routine 05/10/24 10:19 US softtissue chstwall/uprback Urgent Head CTA 05/09/24 16:31 CT angio head wo/w CLINICAL HISTORY: L sided facial droop COMPARISON STUDY: No previous studies for comparison. TECHNIQUE: Unenhanced and arterial phase imaging of the head was performed. Intravenous injection of 119 cc of Optiray 320 IV was uneventful. Sagittal and coronal reconstructions were viewed as well as maximal intensity projections on an independent 3-D workstation. Automated exposure control was utilized for the study. A dose lowering technique was utilized adhering to the principles of ALARA. FINDINGS: No acute intracranial hemorrhage, midline shift or mass effect is present. Ventricular system is unremarkable. The basal cisterns are patent. There is mild atrophy. 3.3 cm focus of encephalomalacia within the right parietal lobe represents an old infarct. A 1.4 cm periventricular hypodensity within the right frontal lobe on image 22 is present. There are no findings to suggest acute dural sinus stenosis or acute territorial infarct. There is occlusion of the right internal carotid artery with reconstitution at the level of the cavernous carotid. There is asymmetric diminished caliber of the right supraclinoid ICA. The right sylvian branches are patent. The left M1 and M2 segments are patent. There is extensive calcified plaque within the left cavernous carotids which results in severe stenosis. The bilateral anterior cerebral arteries arise from the left internal carotid artery. There is no intracranial aneurysm. The right vertebral artery is dominant. The basilar artery is patent. There is persistence of the left posterior cerebral artery. The posterior cerebral arteries are patent. IMPRESSION: 1. No acute intracranial hemorrhage or mass effect. 2. 1.4 cm periventricular hypodensity within the right frontal lobe. This represents an age indeterminate infarct. 3. Old right parietal lobe infarct. 4. Age-indeterminate, but likely chronic, occlusion of the right internal carotid artery with reconstitution at the level of the cavernous carotid. No definite acute large vessel occlusion. 5. Extensive calcified plaque within the left cavernous carotid which results in severe stenosis. ACT 112: Negative or not required by law. Electronically signed by: Ritesh Akins M.D. 05/09/2024 5:47 PM Neck CTA 05/09/24 16:31 CT ANGIOGRAPHY OF THE NECK WITH CONTRAST CLINICAL HISTORY: L sided facial droop COMPARISON STUDY: None available at time of interpretation. Technique: CT angiography of the carotid and vertebral arteries was obtained using Optiray and 3D reconstruction on an independent workstation. NASCET criteria was utilized. Automated exposure control was utilized for the study. A dose lowering technique was utilized adhering to the principles of ALARA. Findings: Emphysema within the visualized lung apices is noted. A spiculated right upper lobe lesion is partially imaged on this exam. This measures at least 1.4 cm. This is shown on image 1 of 427. There is no cervical lymphadenopathy. No cervical spine fractures are present. Multilevel degenerative disc disease and facet arthrosis is present. The right common carotid artery is patent. There is abrupt occlusion of the proximal right internal carotid artery with reconstitution at the level of the right cavernous ICA. There is extensive calcified plaque within the proximal left internal carotid artery. Extensive calcification makes evaluation difficult however there is severe (greater than 90%) stenosis of the proximal left internal carotid artery. There is severe stenosis at the origin of the right vertebral artery. The right vertebral artery is dominant. There is no aneurysm or dissection within the neck. IMPRESSION: 1. Occlusion of the proximal right internal carotid artery with reconstitution at the level of the cavernous carotid. Although technically age indeterminate, this occlusion is probably chronic. 2. Severe (greater than 90%) stenosis of the proximal left internal carotid artery due to extensive calcified plaque. 3. Severe stenosis at the origin the right vertebral artery. 4. Partially visualized spiculated right upper lobe lesion, measuring at least 1.4 cm. This is suspicious for a primary lung malignancy. Nonemergent chest CT is recommended. 5. Emphysema. ACT 112: Positive. There are findings on this exam that require communication between the performing entity and the patient following Patient Test Result Information Act ([place] Act 112) guidelines. Electronically signed by: Ritesh Akins M.D. 05/09/2024 5:40 PM Brain MRI 05/09/24 19:23 Exam(s): MRI HEAD W/WO Contrast IV Amt: 7cc gadavist EXAM: MR Head Without and With Intravenous Contrast CLINICAL HISTORY: Reason for exam: stroke eval. TECHNIQUE: Magnetic resonance images of the head/brain without and with intravenous contrast in multiple planes. CONTRAST: Patient received 7cc gadavist of IV contrast COMPARISON: Comparison made to prior head CT from May 09, 2024. FINDINGS: Brain: There is a remote ischemic injury of the right parietal lobe with encephalomalacia and gliosis. Mild nonspecific white matter changes. There is loss of the normal right ICA flow void concerning for slow flow or no blood flow. No mass. No hemorrhage. No acute infarct. No evidence of abnormal enhancement. The dural venous sinuses are patent. Ventricles: Advanced ventriculomegaly. Bones/joints: Unremarkable. No acute fracture. Sinuses: Chronic maxillary and ethmoid sinusitis. No acute sinusitis. Mastoid air cells: Unremarkable as visualized. No mastoid effusion. Orbits: Bilateral lens replacements. IMPRESSION: No evidence of acute intracranial pathology. Loss of the normal right ICA flow void concerning for slow flow or no blood flow. Remote ischemic injury of the right parietal lobe with encephalomalacia and gliosis. Electronically signed by: Victorina Farrell MD 05/10/24 03:[address] 05/09/24 19:23 Exam(s): CT CHEST With Contrast IV Amt: 94ml EXAM: CT Chest With Intravenous Contrast CLINICAL HISTORY: Spiculated lesion, eval for lung ca. TECHNIQUE: Axial computed tomography images of the chest with intravenous contrast. CTDI is 21.91 mGy and DLP is 762.21 mGy-cm. Automated exposure control was utilized for the study. A dose lowering technique was utilized adhering to the principles of ALARA. CONTRAST: Patient received 94ml of IV contrast COMPARISON: Chest radiograph 11/17/2023 FINDINGS: Lungs: Emphysema is noted. No pulmonary mass or consolidation. Pleural space: Unremarkable. No pneumothorax. No significant effusion. Heart: Coronary artery calcifications are present. No cardiomegaly. No significant pericardial effusion. Bones/joints: There are degenerative changes of the spine. No acute fracture. No dislocation. Soft tissues: Indeterminant 2.7 x 5.2 x 5.0 cm mass of the subcutaneous tissues of the lower chest at midline. Vasculature: Mild atherosclerosis. No aneurysm. Lymph nodes: Unremarkable. No enlarged lymph nodes. IMPRESSION: 1. No pulmonary mass or consolidation. 2. Indeterminant 2.7 x 5.2 x 5.0 cm mass of the subcutaneous tissues of the lower chest at midline. 3. Emphysema is noted. Emphysema is an independent risk factor for lung cancer. Recommend evaluation for low dose lung cancer screening protocol. Electronically signed by: Marycarmen Adan MD 05/10/24 01:39 AM Soft Tissue Ultrasound 05/10/24 10:19 Anterior chest wall ultrasound CLINICAL HISTORY: Mass on anterior chest wall. COMPARISON STUDY: Chest CT May 09, 2024. TECHNIQUE: Sonography of the anterior chest wall mass was performed. FINDINGS: A 5.3 x 3.4 x 4.9 cm mixed echogenicity circumscribed oval-shaped subcutaneous mass of the anterior chest wall corresponds to the palpable lump and the lesion shown on CT of May 09, 2024. This contains no color flow. IMPRESSION: 5.3 x 3.4 x 4.9 cm subcutaneous lesion of the anterior chest wall which corresponds to the palpable lump and lesion shown on chest CT. This favors a sebaceous cyst. Clinical follow-up to ensure stability is recommended. ACT 112: Negative or not required by law. Electronically signed by: Ritesh Akins M.D. 05/10/2024 12:16 PM Discharge Instructions Given to Patient (Per Discharging Provider) Mr. Zaman, You were seen by the neurologist who believes your symptoms are related to Rubio's palsy rather than a stroke. They recommend that you continue with the prednsione for another 6 days starting tomorrow. Also sent you some artificial eye lubricant ointment for use at nighttime. The chest CT did NOT show a mass in your lung. It showed a mass on your anterior chest wall that you state has been there for many years. The ultrasound suggested that this mass is likely a sebaceous cyst. These have the potential to become infected. Please followup with your primary care provider if you would like it removed, they can refer you to a general surgeon to have that removed if needed. The imaging also noted significant stenosis of your carotid and vertebral arteries. You stated that you are being followed as an outpatient for this and that you have seen Vascular Surgery about this. Please continue to keep close followup with your providers about this as imaging here showed that you have had strokes in the past. Again, please keep close follow up with your primary care provider after discharge. Please do not hesitate to come back to the emergency room if your symptoms worsen or return. It was a pleasure taking care of you while you were here. Total Time Total Time Spent Total Time Spent (In Minutes): 75
[2024-05-10 11:33] VITALS: BP 148/65; PULSE 62; TEMP 98.1; O2SAT 92
--- NOTE | 2024-05-10 12:18 | Ultrasound Report ---
Anterior chest wall ultrasound CLINICAL HISTORY: Mass on anterior chest wall. COMPARISON STUDY: Chest CT May 09, 2024. TECHNIQUE: Sonography of the anterior chest wall mass was performed. FINDINGS: A 5.3 x 3.4 x 4.9 cm mixed echogenicity circumscribed oval-shaped subcutaneous mass of the anterior chest wall corresponds to the palpable lump and the lesion shown on CT of May 09, 2024. Thi s contains no color flow. IMPRESSION: 5.3 x 3.4 x 4.9 cm subcutaneous lesion of the anterior chest wall which corresponds to t he palpable lump and lesion shown on chest CT. This favors a sebaceous cyst. Clinical follow-up to en sure stability is recommended. ACT 112: Negative or not required by law. Electronically signed by: Ritesh Akins M.D. 05/10/2024 12:16 PM
--- NOTE | 2024-05-10 13:21 | Communication Note ---
Date of Service: May 10, 2024 By CMS guidelines, a determination that the admission or continued stay is not medically necessary has been made by a member of the UR committee and a physi naveed for this hospital stay, therefore a Code 44 will be completed and the Inpatient admission will be changed to outpatient.
--- NOTE | 2024-05-10 16:17 | Communication Note ---
Date of Service: May 10, 2024 By CMS guidelines, a determination that the admission or continued stay is not medically necessary has been made by a member of the UR committee and a physic viridiana for this hospital stay, therefore a Code 44 will be completed and the Inpatient admission will be changed to outpatient.
== END 2024-05-10 13:46 | disposition home or self-care (01) | DRG 74 ==
LOC: ED 15:56 → INTOOBSV 19:26 → SUATTDRO 19:26 → 2W 19:26